=== PATIENT | female | born 1940 | race Caucasian/White ===

== ENCOUNTER → 2018-08-08 09:31 | Outpatient (CLI) | payer MEDICARE, BC, SELFPAY ==
--- NOTE | 2018-08-08 | DI.US.S_ITS ---
ULTRASOUND OF RIGHT BREAST: 08/08/2018 CLINICAL: RIGHT breast mass. No prior exams were available for comparison. Color flow and real-time ultrasound of the right breast were performed on the areas of interest. [place] scale images of the real-time examination were reviewed. There is a 2.6 cm x 0.6 cm x 2.1 cm oval mass with a non-circumscribed margin in the right breast at 12 o'clock middle depth. This oval mass is hyperechoic. This correlates as palpated. Color flow imaging demonstrates that there is no increase in vascularity. IMPRESSION: BENIGN There is no sonographic evidence of malignancy. The 2.6 cm x 0.6 cm x 2.1 cm oval mass in the right breast is consistent with fat necrosis and is benign. A 1 year screening mammogram is recommended. This exam was interpreted at Station ID: [id number]. Electronically Signed By: Mary gregory/:08/08/2018 14:05:14 letter sent: Normal Exam Ultrasound BI-RADS: 2 Benign
--- NOTE | 2018-08-08 | DI.MG.S_ITS ---
BILATERAL DIGITAL DIAGNOSTIC MAMMOGRAM 3D/2D WITH AUGMENTATION: 08/08/2018 CLINICAL: Right breast lump. Comparison is made to exams dated: 06/18/2017 mammogram and 05/22/2016 mammogram - [facility]. The tissue of both breasts is heterogeneously dense. This may lower the sensitivity of mammography. No significant masses, calcifications, or other findings are seen in either breast. IMPRESSION: INCOMPLETE: NEEDS ADDITIONAL IMAGING EVALUATION There is no mammographic abnormality seen in the right breast to correspond with the palpable abnormality, however targeted ultrasound of the right breast is recommended and will be performed immediately following this exam. This exam was interpreted at Station ID: [id number]. NOTE: For mammograms, a report in lay terms will be sent to the patient. Approximately 15% of breast malignancies will not be visualized mammographically. In the management of a palpable breast mass, a negative mammogram must not discourage biopsy of a clinically suspicious lesion. Electronically Signed By: Mary Chacon M.D. lk/:08/08/2018 10:33:01 ACR BI-RADS Category 0: Incomplete [id number]
== END ==
PROVIDERS: PCP Family Medicine; Visit Provider Family Medicine
DX: R92.8 Other abnormal and inconclusive findings on diagnostic imaging of breast (principal); N63.10 Unspecified lump in the right breast, unspecified quadrant
CPT/HCPCS: 76642; 77066; G0279

== ENCOUNTER → 2022-03-02 10:05 | Outpatient (CLI) | payer MEDICARE, BC, SELFPAY ==
--- NOTE | 2022-03-09 07:33 | P.PFT.S_ITS ---
Pulmonary Function Test Referral & Results Date Patient Seen: 03/02/22 Requesting provider: Kristin Hinton Results: The spirometry demonstrates an FVC of 2.07 L which is 72% of predicted. The FEV1 was measured at 1.51 L which is 71% of predicted. The FEV1/FVC ratio was 73 which is 99% of predicted. Following the administration of bronchodilator there was 11% improvement in FEV1 and a 53% improvement in FEF 25-75%. Lung volumes show an SVC of 2.11 L which is 72% of predicted. The diffusing capacity was measured at 20.36 which is 71% of predicted. No hemoglobin value was provided, so no correction for potential anemia could be made, if appropriate. The maximum voluntary ventilation was reduced Interpretation: This study demonstrates probably very mild obstructive lung disease based on r eduction FEV1 although FEV1/FVC ratio is preserved there is evidence of benefit following bronchodilator as above and shape a flow volume loop also probably supports the presence of some degree of obstructive lung disease There is a mild to moderate reduction in lung volumes suggesting the presence of kjwu-xm-zqeybylo restrictive lung disease which may well explain the abnormality in the FEV1 above There is also a bdna-lx-vjoxdafu reduction diffusing capacity suggesting the presence of disease at the capillary alveolar level Clinical correlation suggested
== END ==
PROVIDERS: PCP Family Medicine; Referring Provider Internal Medicine Pulmonary Disease; Visit Provider Internal Medicine Pulmonary Disease
DX: R06.02 Shortness of breath (principal); Z87.891 Personal history of nicotine dependence; J98.8 Other specified respiratory disorders
CPT/HCPCS: 87635; 94060; 94726; 94729; C9803

== ENCOUNTER 2022-12-20 11:39 | Day surgery (SDC) | payer MEDICARE, OTHER, SELFPAY ==
[2022-12-06 09:42] VITALS: BMI 22.7
[2022-12-20] VITALS (12 sets, daily range): BP systolic 120–185; BP diastolic 62–101; PULSE 60–86; RESP 15–20; TEMP 36.1–36.6; O2SAT 95–98; BMI 22.7; BMI 20.2
--- NOTE | 2022-12-20 06:00 | DI.RAD.S_ITS ---
PROCEDURE: XR KNEE LT 1TO2V INDICATIONS: TKA TECHNIQUE: 2 view(s) of the knee acquired. COMPARISON: None. FINDINGS: Bones: Patient is status post knee joint arthroplasty. Hardware components are in expected positions. Visualized bony structures are intact. Soft tissues: Overlying postoperative changes are noted. IMPRESSION: Postoperative changes from left knee arthroplasty. Dictated by: Kirby Jones M.D. on 12/20/2022 at 18:08 Approved by: Kirby Jones M.D. on 12/20/2022 at 18:09
[2022-12-20] MEDS: ACETAMINOPHEN 325 MG TABLET 975 MG PO (12:13)
[2022-12-20] MEDS: LACTATED RINGERS 1,000 ML 42 ML IV (12:14)
[2022-12-20] MEDS: CELECOXIB 200 MG CAPSULE PO (12:14)
[2022-12-20] MEDS: VANCOMYCIN 1,000 MG/200 ML PIGGYBACK 200 MG IV (14:01)
--- NOTE | 2022-12-20 15:03 | PM.PREOP ---
Pre-operative Note Interval Note History & Physical reviewed/Exam performed by Physician: Yes Changes to H&P: No
--- NOTE | 2022-12-20 15:04 | PM.OP.1 ---
Operative Date/Time/Diagnoses Date of procedure: 12/20/22 Time of procedure: 15:04 Pre-op diagnosis: left knee OA Post-op diagnosis: same Procedure & Clinicians Procedure: Left total knee arthroplasty Same procedure as scheduled: Yes Indications: The patient has had progressively worsening left knee pain with radiographic changes consistent with arthritis. Non-operative management has failed and the patient has requested total knee replacement. The risks, benefits and alternatives to surgery were discussed with the patient prior to proceeding. Risks discussed included, but were not limited to, failure to relieve pain, stiffness, infection, nerve damage, deep venous thrombosis, pulmonary embolism, stroke, coma, heart attack, permanent paralysis and , as well as the potential need for eventual revision of the prosthetic. Surgeon: Blaire Beard Gas Compressor Turbine Operator: Lionel Orantes Anesthesia Type: Spinal Operative Notes Findings: Severe left knee arthritis, good stability Closure Type: primary Specimen(s): none sent Prosthetic devices, grafts, tissues, transplants, or devices: [employer] BCS 2 size 5 femur, size 4 tibia, +10 poly, 35 x 7-1/2 mm patella Estimated Blood Loss (mL): 250 Blood products transfused: none Tourniquet time (min): 64 Procedure in detail: The patient was seen in the pre-operative area, where the patient identified the left knee as the operative site and this was marked with my initials. The patient received pre-operative antibiotics, and was taken to the operating room and placed on the operative table in the supine position. After satisfactory anesthesia, a multimedia manager out was performed. The left leg was encircled with a tourniquet about the proximal thigh, and the leg was prepared from the toes to the tourniquet with ChloroPrep in the usual fashion and draped through sterile drapes. The leg was elevated and exsanguinated with Eschmark bandage and the tourniquet inflated to [250] mmHg pressure. PA was used during the procedure and was essential for adequate retraction and safe implantation of the components. The knee was approached through an approximately 18 cm incision centered over the patella and carried into the knee through a medial parapatellar arthrotomy. A portion of the medial and lateral meniscus was resected. Soft tissue was carefully mobilized around the patella the patella was measured with a caliper. Bone was resected from the patella and the patellar height was reconstituted with up an appropriate sized patellar component. A cover was then placed on the patella. A small amount of additional medial and lateral meniscus was resected. The distal femur was cut at 5?. A [+2] cut was used. It looked like an appropriate distal femoral cut and the cut was made without difficulty. An extramedullary guide was used for the tibial cut. 10 mm was resected off the least affected side.The tibia was prepared. The rotation was assessed. The patient was placed in extension residual medial and lateral meniscus as well as any residual bone was carefully resected. [No] additional tibia was resected. Hemostasis was achieved especially posteriorly. Additional local was injected into the posterior capsule. The extension gap was assessed and additional releases for gap balancing were performed as necessary. It was checked with the gap inspector and mender. The femoral component was trial was placed and the notch was finished. The rotation was assessed and the appropriate size femoral guide was placed on the distal femur and finishing cuts were made. There was no evidence of notching. The anterior, posterior and chamfer cuts were then made. The posterior osteophytes and soft tissues were then removed. The posterior capsule was injected with part of a mixture of 60 ml 0.25% Marcaine mixed with 20 ml Exparel for post operative pain control. The remainder of this mixture was injected into the capsule and subcutaneous tissues during cement curing. The tibial and femoral components were then placed and the knee placed through a range of motion. Range of motion was [0-130], with good stability throughout the range. The trials were then removed, and the tibia was finished. The bone was prepared with pulsatile lavage, and dried with a sponge. Cement was applied and the final prosthetics placed. Excess cement was removed during and after cement curing. A brief Betadine soak was performed. After confirming there was no extruded cement posteriorly, the final tibial insert was placed. The knee was copiously irrigated and the tourniquet deflated. Hemostasis was obtained with the Bovie cautery. A drain was placed and brought out superolaterally. The capsule was closed with interrupted nonabsorbable suture. The subcutaneous layer was closed with barbed sutures, and the skin with a running 3-0 V-Lock suture and Surgical glue. An Aquacel Ag dressing was applied and the patient was taken to recovery having tolerated the procedure well. Complications: none Post-operative Condition: stable Disposition: Acute Care Plan for aftercare: The patient will be maintained on a standard total knee replacement protocol with weight bearing as tolerated. The patient will receive aspirin and sequential compression devices for DVT prophylaxis. The patient will be discharged home when safe for the home environment.
[2022-12-20] MEDS: CEFAZOLIN 2 GM/100 ML PREMIX 100 ML IV ×2 (15:45→23:46)
[2022-12-20] MEDS: TRANEXAMIC ACID 1,000 MG VIAL 2000 MG INJ (16:00)
[2022-12-20] MEDS: BUPIVACAINE LIPOSOME 266 MG/20 ML VIAL INJ (16:28)
[2022-12-20] MEDS: BUPIVACAINE 0.25% (PF) 60 ML, EPINEPHrine 0.3 MG INJ (16:29)
[2022-12-20] MEDS: ONDANSETRON 4 MG/2 ML INJ IV (18:01)
[2022-12-20] MEDS: fentaNYL 100 MCG/2 ML INJ IV (18:02)
[2022-12-20] MEDS: OXYCODONE IR 5 MG TABLET PO (18:11)
[2022-12-20] MEDS: LACTATED RINGERS 1,000 ML 100 ML IV (18:46)
[2022-12-20] MEDS: AMLODIPINE 5 MG TABLET PO (18:46)
[2022-12-20] MEDS: OXYCODONE IR 10 MG TABLET PO (18:46)
[2022-12-20] MEDS: ACETAMINOPHEN 325 MG TABLET 650 MG PO ×2 (18:47→23:46)
[2022-12-20] MEDS: DOCUSATE 100 MG CAPSULE PO (20:38)
[2022-12-20] MEDS: carvediloL 3.125 MG TABLET 6.25 MG PO (20:38)
[2022-12-21] VITALS: BP 127/76; PULSE 66; RESP 16; TEMP 36.1; O2SAT 98
[2022-12-21 04:00] VITALS: BP 141/78; PULSE 87; RESP 18; TEMP 36.1; O2SAT 97
[2022-12-21 05:25] LABS: Hematocrit 35.3 % (36-46); Hemoglobin 11.9 g/dL (12.0-16.0)
[2022-12-21] MEDS: ACETAMINOPHEN 325 MG TABLET 650 MG PO ×2 (06:01→11:49)
[2022-12-21 08:08] VITALS: BP 175/94; PULSE 83
[2022-12-21] MEDS: lisinopriL 10 MG TABLET 30 MG PO (08:08)
[2022-12-21] MEDS: FUROSEMIDE 20 MG TABLET PO (08:08)
[2022-12-21] MEDS: DOCUSATE 100 MG CAPSULE PO (08:08)
[2022-12-21] MEDS: AMLODIPINE 5 MG TABLET PO (08:09)
[2022-12-21] MEDS: OXYCODONE IR 10 MG TABLET PO ×2 (08:09→12:37)
[2022-12-21 08:10] VITALS: BP 175/94; PULSE 83
[2022-12-21] MEDS: carvediloL 3.125 MG TABLET 6.25 MG PO (08:10)
[2022-12-21] MEDS: polyethylene glycoL 3350 17 GM POWD.PACK PO (08:11)
[2022-12-21] MEDS: CEFAZOLIN 2 GM/100 ML PREMIX 100 ML IV (08:11)
[2022-12-21 08:18] VITALS: BP 175/94; PULSE 83; RESP 17; TEMP 36.3; O2SAT 98
--- NOTE | 2022-12-21 09:04 | P.DS_ITS ---
History of Present Illness History of Present Illness Date Patient Seen: 12/21/22 Time Patient Seen: 08:00 Chief complaint: Left TKA Narrative: Patient is resting comfortably in bed this morning, daughter at bedside. She complains of knee pain, marginal control with medication. She also complains of intermittent pains into the left lower extremity that she believes is nerve pain. She is adamant that she is going home today and requests priority ferry pass for the 2pm ferry. Denies fever, chills, nausea, vomiting, shortness of breath. Discharge Providers Provider Discharge Date: 12/21/22 Primary care physician: Harpal London Consults: 12/12/22 12:46 Consult to Anesthesiology Routine Comment: Consulting Provider: Anesthesiologist Reason for consultation: Surgeon requested re: Cardiac history 12/20/22 06:00 Consult to Anesthesiology Routine Comment: Consulting Provider: Anesthesiologist Reason for consultation: Regional block for post operative pain control 12/20/22 18:29 Consult to Discharge Planning Routine Comment: Consult to Occupational Therapy Evaluate & Treat Comment: Physician Instructions: Evaluate and treat Consult to Physical Therapy Evaluate & Treat Comment: Physician Instructions: postop TKA protocol Discharge provider: Nataliia Gonsalez PA-C Summary Hospital Course Discharge Diagnosis: S/p L TKA Hospital Course: Operative Date/Time/Diagnoses Date of procedure: 12/20/22 Time of procedure: 15:04 Pre-op diagnosis: left knee OA Post-op diagnosis: same Procedure & Clinicians Procedure: Left total knee arthroplasty Same procedure as scheduled: Yes Indications: The patient has had progressively worsening left knee pain with radiographic changes consistent with arthritis. Non-operative management has failed and the patient has requested total knee replacement. The risks, benefits and alternatives to surgery were discussed with the patient prior to proceeding. Risks discussed included, but were not limited to, failure to relieve pain, stiffness, infection, nerve damage, deep venous thrombosis, pulmonary embolism, stroke, coma, heart attack, permanent paralysis and , as well as the potential need for eventual revision of the prosthetic. Surgeon: Blaire Beard Gastroenterology Technician: Lionel Orantes Anesthesia Type: Spinal Operative Notes Findings: Severe left knee arthritis, good stability Closure Type: primary Specimen(s): none sent Prosthetic devices, grafts, tissues, transplants, or devices: [employer] BCS 2 size 5 femur, size 4 tibia, +10 poly, 35 x 7-1/2 mm patella Estimated Blood Loss (mL): 250 Blood products transfused: none Status at Discharge Cognitive/behavioral status at discharge: oriented Functional status at discharge: uses cane/walker Overall status at discharge: patient is progressing back to baseline Exam Vital Signs (past 8 hours): - 12/21/22 04:00 12/21/22 08:08 12/21/22 08:10 Temperature 97.0 F L Pulse Rate 87 83 83 Respiratory Rate 18 Blood Pressure 141/78 H 175/94 H 175/94 H Pulse Oximetry 97 Oxygen Flow Rate 2 12/21/22 08:18 Temperature 97.3 F L Pulse Rate 83 Respiratory Rate 17 Blood Pressure 175/94 H Pulse Oximetry 98 Oxygen Flow Rate 2 Oxygen Delivery Method Nasal Cannula Oxygen Flow Rate 2 Narrative Exam Narrative: 82 y/o female. Awake, alert, oriented. L knee intraoperative bandage clean, dry, intact. Bilateral calves soft, compressible, nontender with no palpable cords or masses. Objective Labs 12/21/22 04:44 Labs: Laboratory Results - last 24 hr 12/21/22 04:44 Hgb 11.9 L Hct 35.3 L PFSH Medical History Afib Anxiety about health Arthritis HTN (hypertension) VAMSHI on CPAP Osteoarthritis Scoliosis Surgical History History of carpal tunnel surgery of right wrist Hx of bilateral cataract extraction Hx of breast augmentation Hx of cosmetic surgery Hx of foot surgery Social History household members: none Smoking Status: Former smoker alcohol intake: current Discharge Assessment & Plan Assessment and Plan Assessment: Progressing as expected. Plan of Treatment: [facility] for PT today. If safe and cleared by PT, she may discharge to home with her daughter. Continue pain regimen as needed. Continue anticoagulation. Discharge Plan Discharge Plan Patient Disposition: Home Discharge orders & Medications Discharge Orders: Discharge (Order); Ordered 12/21/22 Ordered By: Nataliia Gonsalez Prescriptions: New oxycodone 5 mg Tablet 5 mg PO Q4-6H PRN (Reason: Pain, Moderate (4-6)) Qty: 40 0RF Continued amlodipine [Norvasc] 5 MG tablet 5 mg PO QDAY Qty: 0 carvedilol 6.25 mg Tablet 6.25 mg PO BID Rx Instructions: must administer with a meal/food acetaminophen 500 mg Tablet 500 mg PO BID lisinopril 30 mg Tablet 30 mg PO DAILY furosemide 20 mg Tablet 20 mg PO QAM Eliquis 5 mg Tablet 5 mg PO BID Follow up/Referrals: Harpal London [Primary Care Provider] - Blaire Beard MD [Physician] - As previously scheduled Diet/Activity/Treatments Diet: Diet as Tolerated Activity: Up and walking as tolerated Cold/Heat Therapy: Ice to knee as needed Skin/Wound/Dressing Care Report to your healthcare provider any signs of infection, such as:: chills, fever, night sweats, unusual drainage and unusual redness Dressing: Keep dressing clean, dry, and intact until 2 week follow up with orthopedics. May remove/replace ZION bandage as needed. Visit Report/Discharge Packet Instructions: DI for Knee Replacement Stand Alone Forms: Patient Portal/API Discharge Data Primary Care Provider: Harpal London Attending Provider: Blaire Beard Quality VTE Deep Vein Thrombosis/Pulmonary Embolism Present on Admission: No
--- NOTE | 2022-12-21 10:21 | CM.DANOTE ---
Initial DCP Assessment Note Pt is an 82 yo female, resident of [facility], now POD#1 from left knee surgery by Dr Beard PCP: Harpal London Payer: [employer] Reviewed chart, pt discussed in multidisciplinary rounds this morning. Therapy has cleared pt for return home w/family to assist and pt has planned for home, DC order from Ortho has already been initiated this morning. RADHA Sellers working on priority boarding pass for patient's request ferry: [id number] to [facility] No barriers identified at this time to patient's safe discharge home w/family to assist; close outpatient f/u recommended. LATRELL Banks Discharge Planning/Care Management CM Discharge Assessment Start: 12/21/22 10:19 Freq: Status: Active Protocol: Document 12/21/22 10:20 [email or web address] (Rec: 12/21/22 10:21 [email or web address] [id number]) Discharge Planning Assessment Assigned Search Engine Marketing Manager LATRELL Moore DPOA/Assigned Designee Name Janie Mason (good friend) Contact Information [phone] Advance Directives? Yes Advance Directives on File No History Provided By Patient,Medical Record Prior Living Arrangements House Household Members none Type of transporation used prior to Drives own vehicle admit Independent with ADL's Yes Is patient alert and oriented? Yes Patient/Family Preference OP PT Therapy Barriers to Discharge No Discharge Plan Home Transportation Arrangement Daughter Referrals Initiated None needed
--- NOTE | 2022-12-21 10:57 | OT.IP.EVAL ---
Addendum entered and electronically signed by Beena Temple OT 12/21/22 13:15: edit Original Note: Current Diagnoses Unilateral primary osteoarthritis, left knee (12/20/22) Surgery Performed Operation Date: 12/20/22 13:45 Actual Procedures p Total Knee Arthroplasty(Left) - Blaire Beard MD Past Medical History (Last Reviewed 12/21/22 @ 09:11 by Nataliia Gonsalez PA-C) Afib Anxiety about health Arthritis HTN (hypertension) VAMSHI on CPAP Osteoarthritis Scoliosis Surgical History (Last Reviewed 12/21/22 @ 09:11 by Nataliia Gonsalez PA-C) History of carpal tunnel surgery of right wrist Hx of bilateral cataract extraction Hx of breast augmentation Hx of cosmetic surgery Hx of foot surgery Occupational Therapy Inpatient Evaluation/Re-Eval M1 PT/OT-IP Prior Functional Status Start: 12/21/22 12:35 Freq: NEEDED Status: Active Protocol: Document 12/21/22 12:35 ES (Rec: 12/21/22 13:00 ES [id number]) Medical Review Prior Functional Status Medical History Reviewed Yes Communication Indep Mobility and Gait Indep with cane or walking stick. Was using FWW in the mornings. Social History Household Members none Living Arrangements House Number of Floors (Floors) One Floor Number of Stairs To Enter/Railing? No stairs Home Equipment Front Wheel Walker,Straight Cane,Lift Recliner,Grab Bars Near Toilet,Grab Bars In Shower Additional Social History Comment Niece will be staying with Leila for at least one week to help out. Patient sleeps in an adjustable bed. M1 PT/OT-IP Prior Functional Status Start: 12/21/22 12:49 Freq: NEEDED Status: Active Protocol: Document 12/21/22 10:21 [facility] (Rec: 12/21/22 13:14 [facility] [id number]) Medical Review Prior Functional Status Medical History Reviewed Yes Communication Independent Activities of Daily Living and IADL's Pt having increased pain durign ADL and IADl needs. Social History Household Members none Living Arrangements House Number of Stairs To Enter/Railing? No steps for the house. Home Environment High Toilet,Walk in Shower Home Equipment Front Wheel Walker,Shower Seat with Backrest,Hand Held Shower,Lift Recliner,Grab Bars Near Toilet M2 OT-IP Current Condition Start: 12/21/22 12:49 Freq: Status: Active Protocol: Document 12/21/22 10:21 [facility] (Rec: 12/21/22 13:14 [facility] [id number]) Occupational Therapy Current Condition Current Condition Evaluation Date 12/21/22 Treatment Diagnosis S/p L TKA Diagnosis Onset Date 12/20/22 M3 OT- IP Subjective and Pain Start: 12/21/22 12:49 Freq: Status: Active Protocol: Document 12/21/22 10:21 [facility] (Rec: 12/21/22 13:14 [facility] [id number]) OT- Subjective Occupational Therapy Visit Type Type Initial Evaluation Visit Start Time 10:21 Visit Stop Time 10:57 Total Visit Minutes 36 Occupational Therapy Visit Comments Patient Comments Pt wanting to use the bathroom . Pt's caregivers in the room. Patient/Caregiver Goals TO go home. OT Pain Assessment Pain When Pain Assessed At Rest Pain Present Pain Present Pain Reported Location Left Knee Intensity 4 Scale Used Numeric (0 - 10) M4 OT- IP ADL's Start: 12/21/22 12:49 Freq: Status: Active Protocol: Document 12/21/22 10:21 [facility] (Rec: 12/21/22 13:14 [facility] [id number]) OT [id number] General Evaluation Self-Feeding Ability Independent OT ADL-Grooming General Evaluation Grooming Ability Independent Areas Needing Assistance Retrieving/Set-up of Grooming Items Comments OT Grooming Comments Able to do while standing at this sink with FWW. OT ADL-Oral Care General Eval Oral Care Ability Independent OT ADL-Dressing General Eval Lower Body Dressing Ability Maximum Assistance Comments OT Dressing Comments Able to show pt LB dressing equipment to help with her independence with dressing needs. Pt states her caregivers will be assisting her. OT ADL-Toileting General Evaluation Toileting Ability Standby Assistance Comments OT Toileting Comments SBA with FWW. Suggested use of wet wipes and pads/brief to prevent rushing to the bathroom. OT ADL-Bathing Comments OT Bathing Comments Pt will have assist for showering needs. M5 OT- IP IADL's Start: 12/21/22 12:49 Freq: Status: Active Protocol: Document 12/21/22 10:21 [facility] (Rec: 12/21/22 13:14 [facility] [id number]) OT-Instrumental Activities of Daily Living Deficits IADL Deficits Identified Deficits Home Safety Awareness Awareness of Need for Assistance at Home Good Awareness Ability to Problem Solve Emergency Able to Problem Solve Situations Home Safety Comments Pt will have assist at home to assist for all her needs. M6 OT- IP Functional Cognition Start: 12/21/22 12:49 Freq: Status: Active Protocol: Document 12/21/22 10:21 [facility] (Rec: 12/21/22 13:14 [facility] [id number]) Cognitive Factors Limiting Selfcare Function Cognitive Ability Level of Alertness Alert Patient Orientation Name,Age,Birthday,Month,Date, Year,Day of Week,Place, Situation Attention Span Ability Capable of Focused Attention, Capable of Sustained Attention Ability to Follow Commands Able to Follow Multi-Step Commands Cognitive Comments Cognitive Assessment Comments Intact. OT- Vision and Hearing OT- Hearing Assessment OT- Hearing Assessment WFL M7 OT- IP Mobility and Balance Start: 12/21/22 12:49 Freq: Status: Active Protocol: Document 12/21/22 10:21 [facility] (Rec: 12/21/22 13:14 [facility] [id number]) OT-Transfer Assessment Sit to and From Stand Sit to and from Stand Contact Guard Assistance, Minimal Assistance Transfers Transfer Ability Standby Assistance,Contact Guard Assistance Technique Transfer Destination Bed,Chair,Toilet Transfer Technique Stand Step Pivot Devices Transfer Assistive Devices Gait Belt,Front Wheeled Walker Comments Mobility Comments Pt's caregiver able to assist pt safely for gait belt management, transfer and bed mobility needs. OT- Balance Assessment Sitting Balance and Reactions Static Sitting Balance Ability Good Dynamic Sitting Balance Ability Good Standing Balance and Reactions Static Standing Balance Ability Good Dynamic Standing Balance Ability Fair M9 OT- IP Assessment and Plan Start: 12/21/22 12:49 Freq: Status: Active Protocol: Document 12/21/22 10:21 [facility] (Rec: 12/21/22 13:14 [facility] [id number]) OT Summary Assessment and Plan Potential Rehabilitation Potential Good Analytic Complexity at Evaluation Low Summary OT Impairments Pain,Functional Mobility, Dressing,Toileting,Bathing, Toilet Transfers,Shower Transfers,Activity Tolerance Progress Towards Goals Progressing Toward Goals Assessment Summary Pt low complexity and main barrier is pain and has supportive caregiver that have completed caregiver training to be able to assist her with all ADl and mobility needs with good safety and understanding. Goals Dressing Goal Independent Toileting Goal Independent Bathing Goal Independent Toilet Transfer Goal Independent Shower Transfer Goal Independent Days to Meet Goals 5 Frequency of Treatment Frequency Of Treatment Once a Day Treatment Plan OT Treatment Plan ADL Training,Functional Mobility,Patient/Family Education,Discharge Planning Discharge Recommendations OT Discharge Recommendations Home with Assistance Transportation Needs at Discharge [facility] Vehicle
[2022-12-21] MEDS: OXYCODONE IR 5 MG TABLET PO (11:49)
[2022-12-21 12:53] VITALS: BP 152/78; PULSE 77; RESP 17; TEMP 36.1; O2SAT 99
--- NOTE | 2022-12-21 13:01 | PT.IIE ---
Current Diagnoses Unilateral primary osteoarthritis, left knee (12/20/22) Surgery Performed Operation Date: 12/20/22 13:45 Actual Procedures p Total Knee Arthroplasty(Left) - Blaire Beard MD Surgical History (Last Reviewed 12/21/22 @ 09:11 by Nataliia Gonsalez PA-C) History of carpal tunnel surgery of right wrist Hx of bilateral cataract extraction Hx of breast augmentation Hx of cosmetic surgery Hx of foot surgery Medical History (Last Reviewed 12/21/22 @ 09:11 by Nataliia Gonsalez PA-C) Afib Anxiety about health Arthritis HTN (hypertension) VAMSHI on CPAP Osteoarthritis Scoliosis Physical Therapy Inpatient Evaluation/Re-Eval M1 PT/OT-IP Prior Functional Status Start: 12/21/22 12:35 Freq: NEEDED Status: Active Protocol: Document 12/21/22 12:35 ES (Rec: 12/21/22 13:00 ES [id number]) Medical Review Prior Functional Status Medical History Reviewed Yes Communication Indep Mobility and Gait Indep with cane or walking stick. Was using FWW in the mornings. Social History Household Members none Living Arrangements House Number of Floors (Floors) One Floor Number of Stairs To Enter/Railing? No stairs Home Equipment Front Wheel Walker,Straight Cane,Lift Recliner,Grab Bars Near Toilet,Grab Bars In Shower Additional Social History Comment Niece will be staying with Leila for at least one week to help out. Patient sleeps in an adjustable bed. M2 PT-IP Current Condition Start: 12/21/22 12:35 Freq: NEEDED Status: Active Protocol: Document 12/21/22 12:35 ES (Rec: 12/21/22 13:00 ES [id number]) Physical Therapy Current Condition Current Condition Evaluation Date 12/21/22 Treatment Diagnosis S/p L TKA; difficulty walking Onset Date 12/20/22 M3 PT-IP Subjective Start: 12/21/22 12:35 Freq: NEEDED Status: Active Protocol: Document 12/21/22 12:35 ES (Rec: 12/21/22 13:00 ES [id number]) Subjective Physical Therapy Visit Type Type Initial Evaluation Visit Start Time 09:08 Visit Stop Time 09:46 Total Visit Minutes 38 Physical Therapy Visit Comments Patient Comments Patient alert in bed, stated she didn't like her breakfast. [place]. M4 PT-IP Mobility and Gait Start: 12/21/22 12:35 Freq: NEEDED Status: Active Protocol: Document 12/21/22 12:35 ES (Rec: 12/21/22 13:00 ES [id number]) PT-Bed Mobility Assessment Supine to Sit Supine to Sit Minimal Assistance,Head of Bed Elevated Scooting Scooting to Edge of Bed Standby Assistance PT-Transfer Assessment Sit to and From Stand Sit to and from Stand Minimal Assistance,Use of Upper Extremities Equipment Transfer Assistive Device Gait Belt,Front Wheeled Walker Transfers Transfer Destination Chair,Toilet Transfer Technique Ambulated Transfer Ability Level of Assist Minimal Assistance,Use of Upper Extremities Comments Mobility Comments Required assist to move LE's to EOB. Able to push self to sit. Assist needed to scoot hips to EOB. Initially needed mod A to stand with posterior LOB, progressing to min A to boost to stand with FWW. Cued for hand placement for safety. Performed toilet transfer with BUE's on grab bar. Cued for hand placement on FWW vs grab bar when starting to ambulate. Instructed patient to place LLE forward during STS to reduce pain with fair follow through. Family also educated on all instructions. Gait Assessment Gait Gait Assistance Required: Contact Guard Assist Distance (Feet) 25 Assistive Devices Assistive Device Gait Belt,Front Wheeled Walker Gait Deviations General Gait Pattern Antalgic,Decreased Stride Length,Decreased Feet Clearance,Flexed Trunk Factors Limiting Gait Function Factors Limiting Gait Function Decreased Strength,Limited Range of Motion,Pain,Poor Balance Comments Gait Comments Ambulated with crouched knee gait, cued for increased L knee extension during stance to reduce fall risk. Patient ambulated out of room but became lightheaded and was returned to chair and left with RN to take BP. Stair Climbing Assessment Comments Stair Climbing Comments No stairs at home. PT-Balance Assessment Sitting Balance and Reactions Static Sitting Balance Ability Good Dynamic Sitting Balance Ability Good Standing Balance and Reactions Static Standing Balance Ability Fair Dynamic Standing Balance Ability Fair Device Used FWW M5 PT-IP Objective Assessments Start: 12/21/22 12:35 Freq: NEEDED Status: Active Protocol: Document 12/21/22 12:35 ES (Rec: 12/21/22 13:00 ES [id number]) Orientation Orientation/Cognition Level of Alertness Alert Language Function Ability No Deficits Noted Safety Awareness Understands Safety Issues Gross Range of Motion Upper Extremity ROM Assessment Within Functional Limits Lower Extremity ROM Assessment Left Impaired Impairments L knee flexion 5-70 degrees Strength Upper Extremity Strength Assessment Within Functional Limits Lower Extremity Strength Assessment Left Impaired Knee 3+/5 M6 PT-IP Treatment Start: 12/21/22 12:35 Freq: NEEDED Status: Active Protocol: Document 12/21/22 12:35 ES (Rec: 12/21/22 13:00 ES [id number]) Physical Therapy Treatment Exercises Exercises Ankle Pumps,Quad Sets,Heel Slides Education Education Provided Precautions,Weight Bearing Status,Post-Op Packet,Safety Other Treatments Other Treatment Performed Educated family on use of gait belt at home for safety. M7 PT-IP Assessment and Plan Start: 12/21/22 12:35 Freq: NEEDED Status: Active Protocol: Document 12/21/22 12:35 ES (Rec: 12/21/22 13:00 ES [id number]) PT Summary Assessment and Plan Potential Rehabilitation Potential Good Status of Condition at Evaluation Evolving Summary Impairments Pain,ROM,Strength,Balance,Bed Mobility,Transfers,Gait, Activity Tolerance Assessment Summary Patient is a 82 year old female POD 1 s/p L TKA. She required assistance with all mobility tasks using FWW. She initially had poor standing balance, improved with practice. She became lightheaded with ambulation so was not able to tolerate household distances this visit . She had increased pain and required min A to complete partial HEP. She will benefit from further skilled PT to increase independence and safety with mobility and TKE exercises prior to d/c home. Anticipate she will be able to d/c today with 24/7 assistance if she is able to better tolerate ambulation. Goals Bed Mobility Goal Minimal Assistance Transfer Goal Minimal Assistance,Front Wheeled Walker Gait Goal Contact Guard Assistance,Front Wheel Walker Gait Distance 50 ft Other Goals Patient will be able to perform TKE HEP with SBA. Days to Meet Goals 2 Frequency of Treatment Frequency Of Treatment Twice a Day Treatment Plan Physical Therapy Treatment Plan Bed Mobility Training,Transfer Training,Gait Training, Therapeutic Exercise,Post Op Education,Discharge Planning Precautions Other Precautions Fall risk Weight Bearing Status Weight Bearing Status Weight Bear as Tolerated Recommendations To Nursing Amount of Assist Needed 1 Person Assist Discharge Recommendations PT Discharge Recommendations Home with 24/7 Assist Available,Outpatient PT Transportation Needs at Discharge Private Vehicle
--- NOTE | 2022-12-21 13:25 | PT.IPTN ---
Current Diagnoses Unilateral primary osteoarthritis, left knee (12/20/22) Surgery Performed Operation Date: 12/20/22 13:45 Actual Procedures p Total Knee Arthroplasty(Left) - Blaire Beard MD Physical Therapy Treatment Note M2 PT-IP Current Condition Start: 12/21/22 12:35 Freq: NEEDED Status: Discharge Protocol: Document 12/21/22 12:35 ES (Rec: 12/21/22 13:00 ES [id number]) Physical Therapy Current Condition Current Condition Evaluation Date 12/21/22 Treatment Diagnosis S/p L TKA; difficulty walking Onset Date 12/20/22 M3 PT-IP Subjective Start: 12/21/22 12:35 Freq: NEEDED Status: Discharge Protocol: Document 12/21/22 12:40 [place] (Rec: 12/21/22 13:17 KS [id number]) Subjective Physical Therapy Visit Type Type Treatment Note Visit Start Time 12:04 Visit Stop Time 12:27 Total Visit Minutes 23 Number of PAN SHOVER Visits 1 Physical Therapy Visit Comments Patient Comments Pt agreeable to working w/ PT. M4 PT-IP Mobility and Gait Start: 12/21/22 12:35 Freq: NEEDED Status: Discharge Protocol: Document 12/21/22 12:40 [place] (Rec: 12/21/22 13:17 [place] [id number]) PT-Bed Mobility Assessment Supine to Sit Supine to Sit Standby Assistance PT-Transfer Assessment Sit to and From Stand Sit to and from Stand Minimal Assistance,Use of Upper Extremities Equipment Transfer Assistive Device Gait Belt,Front Wheeled Walker Transfers Transfer Destination Chair,Toilet Transfer Technique Ambulated Transfer Ability Level of Assist Minimal Assistance,Use of Upper Extremities Comments Mobility Comments Pt in bed upon arrival, needs to use bathroom. Has been complting exercises and has good understanding. SBA for sup<>sit, scooting EOB. Min A for sit<>stand. Pt ambulated ~ 15 ft to toilet, needs min A for slow descent and Min A for sit<>Stand. pt then amulated 10 ft to chair CGA. She c/o increased pain at this time but feels eager to return home . Gait Assessment Gait Gait Assistance Required: Contact Guard Assist Distance (Feet) 25 Assistive Devices Assistive Device Gait Belt,Front Wheeled Walker Gait Deviations General Gait Pattern Antalgic,Decreased Stride Length,Decreased Feet Clearance,Flexed Trunk Factors Limiting Gait Function Factors Limiting Gait Function Decreased Strength,Limited Range of Motion,Pain,Poor Balance Comments Gait Comments Cont to require cues for quad facilitation/knee straightening. no lightheadedness. Stair Climbing Assessment Comments Stair Climbing Comments No stairs at home. PT-Balance Assessment Sitting Balance and Reactions Static Sitting Balance Ability Good Dynamic Sitting Balance Ability Good Standing Balance and Reactions Static Standing Balance Ability Fair Dynamic Standing Balance Ability Fair Device Used FWW M5 PT-IP Objective Assessments Start: 12/21/22 12:35 Freq: NEEDED Status: Discharge Protocol: Document 12/21/22 12:35 ES (Rec: 12/21/22 13:00 ES [id number]) Orientation Orientation/Cognition Level of Alertness Alert Language Function Ability No Deficits Noted Safety Awareness Understands Safety Issues Gross Range of Motion Upper Extremity ROM Assessment Within Functional Limits Lower Extremity ROM Assessment Left Impaired Impairments L knee flexion 5-70 degrees Strength Upper Extremity Strength Assessment Within Functional Limits Lower Extremity Strength Assessment Left Impaired Knee 3+/5 M6 PT-IP Treatment Start: 12/21/22 12:35 Freq: NEEDED Status: Discharge Protocol: Document 12/21/22 12:40 [place] (Rec: 12/21/22 13:17 [place] [id number]) Physical Therapy Treatment Exercises Exercises Ankle Pumps,Gluteal Sets,Quad Sets,Heel Slides Education Education Provided Precautions,Weight Bearing Status,Post-Op Packet,Safety Other Treatments Other Treatment Performed Cont famyl education, discussed at home safety. M7 PT-IP Assessment and Plan Start: 12/21/22 12:35 Freq: NEEDED Status: Discharge Protocol: Document 12/21/22 12:40 [place] (Rec: 12/21/22 13:17 KS [id number]) PT Summary Assessment and Plan Potential Rehabilitation Potential Good Summary Impairments Pain,ROM,Strength,Balance,Bed Mobility,Transfers,Gait, Activity Tolerance Progress Towards Goals Progressing Toward Goals Assessment Summary Pt c/o high pain, but only required SBA for bed mobility and CGA for ambulation. Does still require Jorden for standing from lower surfaces however has good family support. Encouraged TKE exercises. Pt eager to return home w/ daughters assisting. BP was stable. She will benefit from OPPT to improve strength and stability. Goals Bed Mobility Goal Minimal Assistance Transfer Goal Minimal Assistance,Front Wheeled Walker Gait Goal Contact Guard Assistance,Front Wheel Walker Gait Distance 50 ft Other Goals Patient will be able to perform TKE HEP with SBA. Days to Meet Goals 2 Frequency of Treatment Frequency Of Treatment Twice a Day Treatment Plan Physical Therapy Treatment Plan Bed Mobility Training,Transfer Training,Gait Training, Therapeutic Exercise,Post Op Education,Discharge Planning Precautions Other Precautions Fall risk Weight Bearing Status Weight Bearing Status Weight Bear as Tolerated Recommendations To Nursing Amount of Assist Needed 1 Person Assist Discharge Recommendations PT Discharge Recommendations Home with 24/7 Assist Available,Outpatient PT Transportation Needs at Discharge Private Vehicle
== END 2022-12-21 13:05 | disposition home or self-care (01) ==
LOC: OR 11:42 → AC 14:35
PROVIDERS: PCP Student in an Organized Health Care Education/Training Program; Referring Provider Orthopaedic Surgery; Visit Provider Orthopaedic Surgery
PROC: 0SRD0JZ Replacement of Left Knee Joint with Synthetic Substitute, Open Approach (ICD-10-PCS; CPT 27447; principal; 2022-12-20 13:45)
DX: M17.12 Unilateral primary osteoarthritis, left knee (principal); I10 Essential (primary) hypertension; Z87.891 Personal history of nicotine dependence
CPT/HCPCS: 27447; 36415; 73560; 82962; 85014; 85018; 97110; 97161; 97165; 97530; C1776; C9290; J0171; J0690; J2405; J2704; J3010

== ENCOUNTER → 2023-02-19 10:37 | Outpatient (CLI) | payer MEDICARE, OTHER, SELFPAY ==
[2022-12-20 18:31] VITALS: BMI 20.2
--- NOTE | 2023-02-19 | DI.MRI.S_ITS ---
PROCEDURE: MR LUMBAR SPINE WO CON INDICATIONS: Spondylosis without myelopathy or radiculopathy, lumbar salome TECHNIQUE: Noncontrast sagittal T1 spin echo and T2 fast echo, sagittal STIR, and T2 fast spin echo through the lumbar spine. In cases with scoliosis, additional coronal T2 fast spin echo may be performed. COMPARISON: [facility], RG, SPINE LUMB MIN 4VW, 02/26/2022, 10:36. FINDINGS: Image quality: Excellent. Alignment and Curvature: Straightening of normal lumbar lordosis. Grade 1 anterolisthesis of L4 on L5. S shaped curvature of the lumbar spine. Bone Marrow: Multilevel degenerative endplate changes, most pronounced at L3-L4. Marrow is of normal overall signal. No acute vertebral body compression fractures. Spinal Cord: Conus medullaris terminates at the L1 level. Visualized cord demonstrates normal signal and size. Paraspinous Soft Tissues: No paravertebral masses. T12-L1: Severe disc desiccation height loss with a small posterior disc bulge. Facet arthropathy and thickening of the ligamentum flavum. No central canal or neural foraminal stenosis. L1-L2: Disc desiccation height loss with a small posterior disc bulge. Facet arthropathy and thickening of the ligamentum flavum. No central canal or neural foraminal stenosis. L2-L3: Severe disc desiccation height loss with a small posterior disc bulge. Facet arthropathy. No central canal stenosis. Mild bilateral neural foraminal stenosis. L3-L4: Severe disc desiccation height loss with a posterior disc bulge. Facet arthropathy and thickening of ligamentum flavum. This results in moderate central canal stenosis. Mild to moderate right and moderate severe left neural foraminal stenosis. L4-L5: Severe disc desiccation height loss. Grade 1 anterolisthesis. Facet arthropathy and thickening of ligamentum flavum. Severe central canal stenosis. Severe right and mild left neural foraminal stenosis. L5-S1: No central canal or neural foraminal stenosis. IMPRESSION: 1. Multilevel degenerative changes of the lumbar spine, most pronounced at L4-L5 with severe central canal stenosis and severe right neural foraminal stenosis. 2. Moderate central canal stenosis at L3-L4 with moderate to severe left neural foraminal stenosis. 3. Additional degenerative findings as described above. Dictated by: Trent Ghosh M.D. on 02/19/2023 at 15:06 Approved by: Trent Ghosh M.D. on 02/19/2023 at 15:15
== END ==
PROVIDERS: PCP Student in an Organized Health Care Education/Training Program; Referring Provider Physical Medicine & Rehabilitation; Visit Provider Physical Medicine & Rehabilitation
DX: M47.816 Spondylosis without myelopathy or radiculopathy, lumbar region (principal); M48.061 Spinal stenosis, lumbar region without neurogenic claudication
CPT/HCPCS: 72148

== ENCOUNTER 2023-12-24 09:00 | Day surgery (SDC) | payer MEDICARE, OTHER, SELFPAY ==
[2022-12-20 18:31] VITALS: BMI 20.2
[2023-12-16 09:46] VITALS: BMI 21.9
[2023-12-24] VITALS (9 sets, daily range): BP systolic 128–146; BP diastolic 60–90; PULSE 68–88; RESP 14–16; TEMP 36.2–36.8; O2SAT 92–98; BMI 21.1
--- NOTE | 2023-12-24 06:00 | DI.RAD.S_ITS ---
PROCEDURE: XR KNEE RT 1TO2V INDICATIONS: TKA TECHNIQUE: 2 view(s) of the knee acquired. COMPARISON: [facility], CR, XR KNEE LT 1TO2V, 12/20/2022, 17:42. FINDINGS: Bones: Patient is status post knee joint arthroplasty. Hardware components are in expected positions. Visualized bony structures are intact. Soft tissues: Expected postoperative soft tissue air and soft tissue swelling. IMPRESSION: Expected post-operative appearance of a knee arthroplasty. Dictated by: Teresa Ornelas M.D. on 12/24/2023 at 16:04 Approved by: Teresa Ornelas M.D. on 12/24/2023 at 16:05
[2023-12-24] MEDS: LACTATED RINGERS 1,000 ML 42 ML IV ×2 (09:39→13:04)
[2023-12-24] MEDS: VANCOMYCIN 1,000 MG/200 ML PIGGYBACK 200 MG IV (09:39)
[2023-12-24] MEDS: ACETAMINOPHEN 325 MG TABLET 975 MG PO (10:06)
--- NOTE | 2023-12-24 10:31 | PM.PREOP ---
Pre-operative Note Interval Note History & Physical reviewed/Exam performed by Physician: Yes Changes to H&P: No
--- NOTE | 2023-12-24 10:32 | PM.PREOP ---
Pre-operative Note Interval Note History & Physical reviewed/Exam performed by Physician: Yes Changes to H&P: No
--- NOTE | 2023-12-24 10:32 | PM.OP.1 ---
Operative Date/Time/Diagnoses Date of procedure: 12/24/23 Time of procedure: 11:30 Pre-op diagnosis: Right knee OA Post-op diagnosis: same Procedure & Clinicians Procedure: Right total knee arthroplasty Same procedure as scheduled: Yes Indications: The patient has had progressively worsening right knee pain with radiographic changes consistent with arthritis. Non-operative management has failed and the patient has requested total knee replacement. The risks, benefits and alternatives to surgery were discussed with the patient prior to proceeding. Risks discussed included, but were not limited to, failure to relieve pain, stiffness, infection, nerve damage, deep venous thrombosis, pulmonary embolism, stroke, coma, heart attack, permanent paralysis and , as well as the potential need for eventual revision of the prosthetic. Surgeon: Blaire Beard Petroleum Geologist: Lionel Orantes Anesthesia Type: General and Peripheral nerve block Operative Notes Findings: Severe right knee OA, soft bone, adequate stability Closure Type: primary Specimen(s): none sent Prosthetic devices, grafts, tissues, transplants, or devices: Beard and [facility] BCS 2 size 6 femur, size 4 tibia, +9 poly, 35 x 7-1/2 mm patella Estimated Blood Loss (mL): 250 Blood products transfused: none Tourniquet time (min): 69 Procedure in detail: The patient was seen in the pre-operative area, where the patient identified the right knee as the operative site and this was marked with my initials. The patient received pre-operative antibiotics, and was taken to the operating room and placed on the operative table in the supine position. After satisfactory anesthesia, a horse race timer out was performed. The right leg was encircled with a tourniquet about the proximal thigh, and the leg was prepared from the toes to the tourniquet with ChloroPrep in the usual fashion and draped through sterile drapes. The leg was elevated and exsanguinated with Eschmark bandage and the tourniquet inflated to [250] mmHg pressure. A PA was used during the procedure and was essential for intraoperative retraction and safe implantation of the components. The knee was approached through an approximately 18 cm incision centered over the patella and carried into the knee through a medial parapatellar arthrotomy. Portion of the medial and lateral meniscus was resected. Soft tissue was carefully mobilized around the patella the patella was measured with a caliper. Bone was resected from the patella and the patellar height was reconstituted with up an appropriate sized patellar component. A cover was then placed on the patella. A small amount of additional medial and lateral meniscus was resected. Pins were placed in the femur for Cori robotic navigation and the tibial guide was pinned to the tibia. A plan was carefully taken and developed to optimize alignment, stability in flexion extension gap. The distal femoral cut was made with the robotic bur. It looked like an appropriate distal femoral cut and the cut was made without difficulty. The rotation was assessed and the appropriate size femoral guide was placed on the distal femur and finishing cuts were made. There was no evidence of notching. The anterior, posterior and chamfer cuts were then made. The posterior osteophytes and soft tissues were then removed. The posterior capsule was injected with part of a mixture of 60 ml 0.25% Marcaine mixed with 20 ml Exparel for post operative pain control. The remainder of this mixture was injected into the capsule and subcutaneous tissues during cement curing. The tibial guide was meticulously adjusted and navigated. It was pinned to the tibia and a tibial cut was made without difficulty. The patient was placed in extension residual medial and lateral meniscus as well as any residual bone was carefully resected. [No] additional tibia was resected. Hemostasis was achieved especially posteriorly. Additional local was injected into the posterior capsule. The femoral component trial was placed and the notch was finished. Trial tibial and femoral components were then placed and the knee placed through a range of motion. Range of motion was [0-130], with good stability throughout the range. The trials were then removed, and the tibia was finished. The bone was prepared with pulsatile lavage, and dried with a sponge. Cement was applied and the final prosthetics placed. Excess cement was removed during and after cement curing. A brief Betadine soak was performed. After confirming there was no extruded cement posteriorly, the final tibial insert was placed. The knee was copiously irrigated and the tourniquet deflated. Hemostasis was obtained with the bovie cautery. The capsule was closed with interrupted Vicryl suture. The subcutaneous layer was closed with barbed sutures, and the skin with a running 3-0 V-Lock suture and Surgical glue. An Aquacel Ag dressing was applied and the patient was taken to recovery having tolerated the procedure well. Complications: none Post-operative Condition: stable Disposition: Acute Care Plan for aftercare: The patient will be maintained on a standard total knee replacement protocol with weight bearing as tolerated. The patient will receive eliquis and sequential compression devices for DVT prophylaxis. The patient will be discharged home when safe for the home environment.
--- NOTE | 2023-12-24 11:09 | SUR.PREOP ---
Block start time [1102] . Time out done at 1058. Monitoring initiated and maintained throughout procedure. Oxygen and medications given per anesthesiologist instructions. Patient remained stable throughout procedure, no adverse reactions noted. Block end time [1106].
[2023-12-24] MEDS: CEFAZOLIN 2 GM/100 ML PREMIX 100 ML IV ×2 (11:30→19:03)
[2023-12-24] MEDS: TRANEXAMIC ACID 1,000 MG VIAL 1000 MG INJ ×2 (11:30→12:53)
[2023-12-24] MEDS: BUPIVACAINE LIPOSOME 266 MG/20 ML VIAL INJ (11:46)
[2023-12-24] MEDS: BUPIVACAINE 0.25% (PF) 60 ML, EPINEPHrine 0.3 MG INJ (11:47)
--- NOTE | 2023-12-24 11:53 | SUR.OPER ---
Supine on padded OR bed. Pillow under head, arms secured on padded armboards <90 degree abduction. Safety belt across torso. Non-operative leg secured with tape over blanket over lower leg. Operative leg secured in Bigg positioner. Foam padded brace at thigh of operative leg.
[2023-12-24] MEDS: LACTATED RINGERS 1,000 ML 100 ML IV (14:14)
--- NOTE | 2023-12-24 15:00 | PC.NURSE ---
Pt to room 214 via bed from PACU. Pt is awake, alert, and oriented x 3. States she is not having any pain, nausea, or shortness of breath. States her right foot and leg are still numb but she is able to slightly move her foot. Pt oriented to room, call light, bed controls, and tv controls. Bed alarm on for safety. Pt agrees to not get up without assistance and to call as needed. SCD's on and running. IVF infusing as ordered.
--- NOTE | 2023-12-24 15:55 | PT.IIE ---
Current Diagnoses Unilateral primary osteoarthritis, right knee (12/24/23) Surgery Performed Operation Date: 12/24/23 10:45 Actual Procedures p Total Knee Arthroplasty - Robot(Right) - Blaire Beard MD Surgical History (Last Updated 12/16/23 @ 10:16 by Quita Hillman, RN) History of carpal tunnel surgery of right wrist History of surgery History of total left knee replacement (12/20/22) Hx of bilateral cataract extraction Hx of breast augmentation Hx of cosmetic surgery Hx of foot surgery Medical History (Last Updated 12/16/23 @ 12:07 by Quita Hillman, RN) Afib Anxiety about health Arthritis Chronic dyspnea History of cardioversion HTN (hypertension) VAMSHI on CPAP Osteoarthritis Pulmonary HTN Scoliosis Tricuspid regurgitation Physical Therapy Inpatient Evaluation/Re-Eval M1 PT/OT-IP Prior Functional Status Start: 12/24/23 17:25 Freq: NEEDED Status: Active Protocol: Document 12/24/23 15:55 AB (Rec: 12/24/23 17:39 AB [id number]) Medical Review Prior Functional Status Medical History Reviewed Yes Communication able to make needs known Mobility and Gait pt stated that she was independent with all mobilities and ambulation without AD indoors and uses a walking stick for outdoor mobility; still able to drive prior to sx Social History Household Members none Living Arrangements House Number of Floors (Floors) One Floor Number of Stairs To Enter/Railing? no steps to enter the house Home Environment High Toilet,Walk in Shower Home Equipment Front Wheel Walker,Shower Seat with Backrest,Hand Held Shower,Lift Recliner,Grab Bars Near Toilet,Grab Bars In Shower Additional Social History Comment pt plans to have her niece assist her at home. niece stated that she will be staying with pt for ~ 2 weeks pt has an adjustable bed M2 PT-IP Current Condition Start: 12/24/23 17:25 Freq: NEEDED Status: Active Protocol: Document 12/24/23 15:55 AB (Rec: 12/24/23 17:39 AB [id number]) Physical Therapy Current Condition Current Condition Evaluation Date 12/24/23 Treatment Diagnosis s/p R TKA; difficulty in walking Onset Date 12/24/23 M3 PT-IP Subjective Start: 12/24/23 17:25 Freq: NEEDED Status: Active Protocol: Document 12/24/23 15:55 AB (Rec: 12/24/23 17:39 AB [id number]) Subjective Physical Therapy Visit Type Type Initial Evaluation Visit Start Time 15:55 Visit Stop Time 17:00 Number of GRADES 6 THROUGH 8 TEACHER Visits 0 Physical Therapy Visit Comments Patient Comments agreeable to do PT Therapy Pain Assessment Pain When Pain Assessed At Rest Pain Present Pain Present Denied Pain M4 PT-IP Mobility and Gait Start: 12/24/23 17:25 Freq: NEEDED Status: Active Protocol: Document 12/24/23 15:55 AB (Rec: 12/24/23 17:39 AB [id number]) PT-Bed Mobility Assessment Supine to Sit Supine to Sit Standby Assistance Sit to Supine Sit to Supine Standby Assistance PT-Transfer Assessment Sit to and From Stand Sit to and from Stand Contact Guard Assistance, Minimal Assistance Equipment Transfer Assistive Device Gait Belt,Front Wheeled Walker Orthotic/Prosthetic Devices or Brace: No Transfers Transfer Destination Chair,Bedside Commode Transfer Technique Stand Step Pivot Transfer Ability Level of Assist Contact Guard Assistance, Minimal Assistance Comments Mobility Comments pt sitting on EOB with nurse and NAC. pt was able to use the bedside commode. PT assited. pt completed sit to stand min A and cues and step transfer to bedside commode using FWW min A and cues for RLE steadiness. pt completed sit to stand from the commode CGA to min A and step transfer to EOB using FWW CGA to min A . pt agreed to ambulate. sit to stand from EOB CGA to min A and ambulated to the chair using fWW ~ 20 ft. niece in room and asking about going home. informed pt and niece that it depends on what they want. but for PT, caregiver training needs to be completed to make sure that caregiver will be able to assist pt. niece agreed. caregiver training conducted. educated niece on how to use safety belt and how to assist pt. niece was able to assist pt with sit to stand and ambulation in room using FWW CGA to min A ~ 30 ft. (+) LOB but niece was able to assist pt. pt sat on EOB. completed bed mobility sit<>supine SBA with cues for techniques. pt requested to use the toilet again. sit to stand cGA from EOB and ambulated to the toilet using FWW CGA. completed sit to stand from the toilet min A using grab bar and ambulated back to chair using FWW CGA to min A. positioned pt on the chair. call light and table placed within reach. post-op folder provided and reviewed contents with pt. pt and niece without further concerns. Gait Assessment Gait Gait Assistance Required: Contact Guard Assist,Minimum Assistance Distance (Feet) 30 Able to Maintain Weight Bearing Status Yes During Gait Assistive Devices Assistive Device Gait Belt,Front Wheeled Walker Orthotic/Prosthetic Devices or Brace: No Gait Deviations General Gait Pattern Antalgic,Decreased Stride Length,Decreased Feet Clearance,Step-to Gait Factors Limiting Gait Function Factors Limiting Gait Function Decreased Activity Tolerance, Decreased Strength,Difficulty Following Directions,Limited Range of Motion,Pain,Poor Balance,Poor Safety Awareness PT-Balance Assessment Sitting Balance and Reactions Static Sitting Balance Ability Normal Dynamic Sitting Balance Ability Good Standing Balance and Reactions Static Standing Balance Ability Fair Dynamic Standing Balance Ability Fair Device Used FWW M5 PT-IP Objective Assessments Start: 12/24/23 17:25 Freq: NEEDED Status: Active Protocol: Document 12/24/23 15:55 AB (Rec: 12/24/23 17:39 AB [id number]) Orientation Orientation/Cognition Level of Alertness Alert Orientation Name,Place,Situation Safety Awareness Decreased Safety Awareness Memory Description No Deficits Noted Gross Range of Motion Lower Extremity ROM Impairments R knee flexion: ~ 90 deg Strength Lower Extremity Strength Assessment Right Impaired Hip 3+/5 Knee 3+/5 Coordination Assessment Gross Coordination Gross Coordination WNL Sensation Assessment Sensation Gross Sensation WNL Muscle Tone Muscle Tone WNL Yes M6 PT-IP Treatment Start: 12/24/23 17:25 Freq: NEEDED Status: Active Protocol: Document 12/24/23 15:55 AB (Rec: 12/24/23 17:39 AB [id number]) Physical Therapy Treatment Education Education Provided Precautions,Weight Bearing Status,Post-Op Packet,Safety M7 PT-IP Assessment and Plan Start: 12/24/23 17:25 Freq: NEEDED Status: Active Protocol: Document 12/24/23 15:55 AB (Rec: 12/24/23 17:39 AB [id number]) PT Summary Assessment and Plan Potential Rehabilitation Potential Good Status of Condition at Evaluation Evolving Summary Impairments Pain,ROM,Strength,Balance, Coordination,Sensation,Tone, Cognition,Bed Mobility, Transfers,Gait,Activity Tolerance Assessment Summary pt is an 83 y/o F s/p R TKA POD 0. pt is WBAT on RLE. pt requiring CGA to min A with mobility using FWW. pt plans to go home and her niece will be assisting her at home. caregiver training conducted and niece was able to assist pt safely. pt may go home when medically stable. Goals Bed Mobility Goal Independent Transfer Goal Independent,Front Wheeled Walker Gait Goal Independent,Front Wheel Walker Gait Distance 200 Days to Meet Goals 5 Frequency of Treatment Frequency Of Treatment Twice a Day Other frequency or as tolerated Treatment Plan Physical Therapy Treatment Plan Bed Mobility Training,Transfer Training,Gait Training, Therapeutic Exercise,Balance Retraining,Post Op Education, Discharge Planning,Hot or Cold Pack,Neuromuscular Re-ed, Coordination Retraining,Manual Therapy Weight Bearing Status Weight Bearing Status Weight Bear as Tolerated Allowed Weight Bearing Amount (enter % RLE WBAT or #) (%) Recommendations To Nursing Amount of Assist Needed 1 Person Assist Discharge Recommendations PT Discharge Recommendations Home with Assistance, Outpatient PT Transportation Needs at Discharge Private Vehicle
[2023-12-24] MEDS: OXYCODONE IR 5 MG TABLET PO ×2 (19:03→22:49)
[2023-12-24] MEDS: ACETAMINOPHEN 325 MG TABLET 650 MG PO (21:18)
[2023-12-24] MEDS: ASPIRIN EC 81 MG TABLET PO (21:18)
[2023-12-24] MEDS: APIXABAN 5 MG TABLET PO (21:19)
[2023-12-24] MEDS: carvediloL 3.125 MG TABLET 6.25 MG PO (21:19)
[2023-12-24] MEDS: DOCUSATE 100 MG CAPSULE PO (21:19)
[2023-12-24] MEDS: AMLODIPINE 5 MG TABLET PO (21:22)
[2023-12-25] MEDS: LACTATED RINGERS 1,000 ML 100 ML IV (01:13)
[2023-12-25] MEDS: CEFAZOLIN 2 GM/100 ML PREMIX 100 ML IV (02:40)
[2023-12-25 03:24] VITALS: BP 148/84; PULSE 79; RESP 19; TEMP 36.5; O2SAT 96
[2023-12-25] MEDS: OXYCODONE IR 5 MG TABLET PO ×3 (03:25→09:40)
[2023-12-25 05:26] LABS: Hematocrit 34.7 % (36-46); Hemoglobin 11.7 g/dL (12.0-16.0)
[2023-12-25] MEDS: ACETAMINOPHEN 325 MG TABLET 650 MG PO (05:28)
[2023-12-25] MEDS: ONDANSETRON 4 MG ODT PO ×2 (05:28→09:34)
--- NOTE | 2023-12-25 07:36 | PM.DS.1 ---
History of Present Illness History of Present Illness Date Patient Seen: 12/25/23 Time Patient Seen: 07:36 Chief complaint: RT TKA *OPB* Narrative: Operative Date/Time/Diagnoses Date of procedure: 12/24/23 Time of procedure: 11:30 Pre-op diagnosis: Right knee OA Post-op diagnosis: same Procedure & Clinicians Procedure: Right total knee arthroplasty Same procedure as scheduled: Yes Indications: The patient has had progressively worsening right knee pain with radiographic changes consistent with arthritis. Non-operative management has failed and the patient has requested total knee replacement. The risks, benefits and alternatives to surgery were discussed with the patient prior to proceeding. Risks discussed included, but were not limited to, failure to relieve pain, stiffness, infection, nerve damage, deep venous thrombosis, pulmonary embolism, stroke, coma, heart attack, permanent paralysis and , as well as the potential need for eventual revision of the prosthetic. Surgeon: Blaire Beard Gear Technician: Lionel Orantes Anesthesia Type: General and Peripheral nerve block Operative Notes Findings: Severe right knee OA, soft bone, adequate stability Closure Type: primary Specimen(s): none sent Prosthetic devices, grafts, tissues, transplants, or devices: Beard and nephew [employer] BCS 2 size 6 femur, size 4 tibia, +9 poly, 35 x 7-1/2 mm patella Estimated Blood Loss (mL): 250 Blood products transfused: none Tourniquet time (min): 69 Discharge Providers Provider Discharge Date: 12/25/23 Primary care physician: Harpal London Consults: 12/24/23 06:00 Consult to Anesthesiology Routine Comment: Consulting Provider: Anesthesiologist Reason for consultation: Regional block for post operative pain control Has provider been notified: No 12/24/23 13:50 Consult to Discharge Planning Routine Comment: Consult to Occupational Therapy Evaluate & Treat Comment: Physician Instructions: Evaluate and treat Consult to Physical Therapy Evaluate & Treat Comment: Physician Instructions: postop TKA protocol Discharge provider: Raquel Wesley PA-C Summary Hospital Course Discharge Diagnosis: Right knee osteoarthritis, s/p right total knee arthroplasty Hospital Course: Ms Fischer's hospital course was unremarkable. On the morning of POD# 1, she was feeling well and wanted to go home. She was eating and voiding without difficulty and her pain was well-controlled with oral medication. She was evaluated by PT throughout her stay and they felt she was appropriate for homegoing. Exam Vital Signs (past 8 hours): - 12/25/23 03:24 Temperature 97.7 F Pulse Rate 79 Respiratory Rate 19 Blood Pressure 148/84 H Pulse Oximetry 96 Oxygen Flow Rate 0 Oxygen Delivery Method Room Air Oxygen Flow Rate 0 Narrative Exam Narrative: 5/5 strength in hip flexors, quadriceps, hamstrings, DF, PF, EHL on right. Sensation to light touch intact throughout RLE, calf soft and compressible. ZION over Aquacel CDI. SCDs in place. Objective Labs 12/25/23 04:57 Labs: Laboratory Results - last 24 hr 12/25/23 04:57 Hgb 11.7 L Hct 34.7 L PFSH Medical History (Updated 12/16/23 @ 12:07 by Quita Hillman, RN) Chronic dyspnea Tricuspid regurgitation Pulmonary HTN History of cardioversion Scoliosis Anxiety about health Osteoarthritis Arthritis HTN (hypertension) VAMSHI on CPAP Afib Surgical History (Updated 12/16/23 @ 10:16 by Quita Hillman RN) History of surgery History of total left knee replacement (12/20/22) History of carpal tunnel surgery of right wrist Hx of breast augmentation Hx of foot surgery Hx of bilateral cataract extraction Hx of cosmetic surgery Social History household members: none Smoking Status: Former smoker alcohol intake: current Discharge Assessment & Plan Assessment and Plan Assessment: Right knee osteoarthritis, s/p right total knee arthroplasty Plan of Treatment: Discharge home, outpt PT, multimodal pain control, Eliquis as per preop for VTE prophylaxis. F/u in office as scheduled. Discharge Plan Discharge Plan Patient Disposition: Home Provider Discharge Comment: Pt received post-op rxs from office. Discharge orders & Medications Discharge Orders: Discharge (Order); Ordered 12/25/23 Ordered By: Raquel Wesley Prescriptions: Continued amlodipine [Norvasc] 5 MG tablet 5 mg PO BID Qty: 0 naltrexone 1.5 mg Capsule 1.5 mg PO DAILY carvedilol 6.25 mg Tablet 6.25 mg PO BID Rx Instructions: must administer with a meal/food acetaminophen 500 mg Tablet 500 mg PO BID lisinopril 30 mg Tablet 40 mg PO DAILY furosemide 20 mg Tablet 20 mg PO QAM Eliquis 5 mg Tablet 5 mg PO BID Follow up/Referrals: Harpal London [Primary Care Provider] - Blaire Beard MD [Physician] - 01/08/24 10:30 am (Follow up at [facility] office in [place].) Diet/Activity/Treatments Diet: Diet as Tolerated Activity: Weightbearing as tolerated. Walk frequently! Cold/Heat Therapy: Ice to knee as needed for pain. Skin/Wound/Dressing Care Report to your healthcare provider any signs of infection, such as:: chills, fever, night sweats and unusual redness Dressing: May remove ZION wrap and shower on 12/27/2023. Keep dressing in place until follow up in office. No bathing or otherwise soaking incision. Call the office if dressing becomes saturated inside. Visit Report/Discharge Packet Instructions: DI for Knee Replacement, DI for Prescription Opioid Use Stand Alone Forms: Patient Portal/API, Surgery Discharge Discharge Data Primary Care Provider: Harpal London Attending Provider: Blaire Berad Quality VTE Deep Vein Thrombosis/Pulmonary Embolism Present on Admission: No
--- NOTE | 2023-12-25 09:05 | PT.IPTN ---
Current Diagnoses Unilateral primary osteoarthritis, right knee (12/24/23) Surgery Performed Operation Date: 12/24/23 10:45 Actual Procedures p Total Knee Arthroplasty - Robot(Right) - Blaire Beard MD Physical Therapy Treatment Note M2 PT-IP Current Condition Start: 12/24/23 17:25 Freq: NEEDED Status: Discharge Protocol: Document 12/24/23 15:55 AB (Rec: 12/24/23 17:39 AB [id number]) Physical Therapy Current Condition Current Condition Evaluation Date 12/24/23 Treatment Diagnosis s/p R TKA; difficulty in walking Onset Date 12/24/23 M3 PT-IP Subjective Start: 12/24/23 17:25 Freq: NEEDED Status: Discharge Protocol: Document 12/25/23 09:05 AB (Rec: 12/25/23 12:49 AB [id number]) Subjective Physical Therapy Visit Type Type Treatment Note Visit Start Time 09:05 Visit Stop Time 09:40 Number of REGISTERED NURSING PROFESSOR Visits 0 Physical Therapy Visit Comments Patient Comments agreeable to do PT Therapy Pain Assessment Pain When Pain Assessed During Mobility Pain Present Pain Present Pain Reported Location Right Knee Intensity 8 Pain Management Techniques Apply Cold,Distraction, Modification of Treatment,Re- positioning,Timing of Activity with Medications M4 PT-IP Mobility and Gait Start: 12/24/23 17:25 Freq: NEEDED Status: Discharge Protocol: Document 12/25/23 09:05 AB (Rec: 12/25/23 12:49 AB [id number]) PT-Transfer Assessment Sit to and From Stand Sit to and from Stand Minimal Assistance,1 Person Assistance,Use of Upper Extremities Equipment Transfer Assistive Device Gait Belt,Front Wheeled Walker Orthotic/Prosthetic Devices or Brace: No Comments Mobility Comments pt seated on the chair and agreeable to do PT. pt asked her caregivers to leave. pt c /o increase R knee pain today. completed seated heel slides prior to standing. pt completed sit to stand min A and max cues. pt ambulated in room using FWW ~ 30 ft CGA. presents with slow paced gait but without LOB. pt sat back on the chair. pt's caregivers came back in. caregiver training was conducted yesterday. positioned pt on the chair. call light and table placed within reach. left pt with nurse and her nieces. Gait Assessment Gait Gait Assistance Required: Contact Guard Assist,1 Person Assist Distance (Feet) 30 Able to Maintain Weight Bearing Status Yes During Gait Assistive Devices Assistive Device Gait Belt,Front Wheeled Walker Orthotic/Prosthetic Devices or Brace: No Gait Deviations General Gait Pattern Antalgic,Decreased Stride Length,Decreased Feet Clearance,Step-to Gait Factors Limiting Gait Function Factors Limiting Gait Function Decreased Activity Tolerance, Difficulty Following Directions,Limited Range of Motion,Pain,Poor Balance M5 PT-IP Objective Assessments Start: 12/24/23 17:25 Freq: NEEDED Status: Discharge Protocol: Document 12/24/23 15:55 AB (Rec: 12/24/23 17:39 AB [id number]) Orientation Orientation/Cognition Level of Alertness Alert Orientation Name,Place,Situation Safety Awareness Decreased Safety Awareness Memory Description No Deficits Noted Gross Range of Motion Lower Extremity ROM Impairments R knee flexion: ~ 90 deg Strength Lower Extremity Strength Assessment Right Impaired Hip 3+/5 Knee 3+/5 Coordination Assessment Gross Coordination Gross Coordination WNL Sensation Assessment Sensation Gross Sensation WNL Muscle Tone Muscle Tone WNL Yes M6 PT-IP Treatment Start: 12/24/23 17:25 Freq: NEEDED Status: Discharge Protocol: Document 12/25/23 09:05 AB (Rec: 12/25/23 12:49 AB [id number]) Physical Therapy Treatment Exercises Exercises Heel Slides Education Education Provided Safety M7 PT-IP Assessment and Plan Start: 12/24/23 17:25 Freq: NEEDED Status: Discharge Protocol: Document 12/25/23 09:05 AB (Rec: 12/25/23 12:49 AB [id number]) PT Summary Assessment and Plan Potential Rehabilitation Potential Fair Summary Impairments Pain,ROM,Strength,Balance, Coordination,Sensation,Tone, Cognition,Bed Mobility, Transfers,Gait,Activity Tolerance Progress Towards Goals Slow Progress due to Pain Assessment Summary pt requiring min A with sit to stand and CGA with ambulation using FWW. c/o more R knee pain today affecting mobility. caregiver training was conducted yesterday and pt's niece knows how to assist her. pt plans to go home today. pt has out pt PT set up. Goals Bed Mobility Goal Independent Transfer Goal Independent,Front Wheeled Walker Gait Goal Independent,Front Wheel Walker Gait Distance 200 Days to Meet Goals 5 Frequency of Treatment Frequency Of Treatment Twice a Day Other frequency or as tolerated Treatment Plan Physical Therapy Treatment Plan Bed Mobility Training,Transfer Training,Gait Training, Therapeutic Exercise,Balance Retraining,Post Op Education, Discharge Planning,Hot or Cold Pack,Neuromuscular Re-ed, Coordination Retraining,Manual Therapy Weight Bearing Status Weight Bearing Status Weight Bear as Tolerated Allowed Weight Bearing Amount (enter % RLE WBAT or #) (%) Recommendations To Nursing Amount of Assist Needed 1 Person Assist Discharge Recommendations PT Discharge Recommendations Home with Assistance, Outpatient PT Transportation Needs at Discharge Private Vehicle
[2023-12-25 09:27] VITALS: BP 162/71; PULSE 84; RESP 18; TEMP 36.7; O2SAT 96
[2023-12-25] MEDS: DOCUSATE 100 MG CAPSULE PO (09:35)
[2023-12-25] MEDS: APIXABAN 5 MG TABLET PO (09:35)
[2023-12-25] MEDS: ASPIRIN EC 81 MG TABLET PO (09:35)
[2023-12-25 09:37] VITALS: BP 164/71
[2023-12-25] MEDS: lisinopriL 10 MG TABLET 40 MG PO (09:37)
[2023-12-25 09:39] VITALS: BP 164/71
[2023-12-25] MEDS: carvediloL 3.125 MG TABLET 6.25 MG PO (09:39)
[2023-12-25] MEDS: AMLODIPINE 5 MG TABLET PO (09:39)
--- NOTE | 2023-12-25 10:08 | PC.NURSE ---
Pt is dressed and ready for discharge home with Friends. IV has been removed. Went over d/c instructions with Pt and Friends-discussed d/c meds, time of last dose, reviewed stroke education, s/s of infection, showering, icing and elevating, and follow up. Encouraged Pt to drink plenty of fludis to prevent constipation or dehydration. Pt denied further questions and will be taken out via w/c by HIRED HAND to POV with friends and all belongings.
--- NOTE | 2023-12-25 11:04 | OT.IP.EVAL ---
Current Diagnoses Unilateral primary osteoarthritis, right knee (12/24/23) Surgery Performed Operation Date: 12/24/23 10:45 Actual Procedures p Total Knee Arthroplasty - Robot(Right) - Blaire Beard MD Past Medical History (Last Updated 12/16/23 @ 12:07 by Quita Hillman, RN) Afib Anxiety about health Arthritis Chronic dyspnea History of cardioversion HTN (hypertension) VAMSHI on CPAP Osteoarthritis Pulmonary HTN Scoliosis Tricuspid regurgitation Surgical History (Last Updated 12/16/23 @ 10:16 by Quita Hillman, RN) History of carpal tunnel surgery of right wrist History of surgery History of total left knee replacement (12/20/22) Hx of bilateral cataract extraction Hx of breast augmentation Hx of cosmetic surgery Hx of foot surgery Occupational Therapy Inpatient Evaluation/Re-Eval M1 PT/OT-IP Prior Functional Status Start: 12/24/23 17:25 Freq: NEEDED Status: Discharge Protocol: Document 12/24/23 15:55 AB (Rec: 12/24/23 17:39 AB [id number]) Medical Review Prior Functional Status Medical History Reviewed Yes Communication able to make needs known Mobility and Gait pt stated that she was independent with all mobilities and ambulation without AD indoors and uses a walking stick for outdoor mobility; still able to drive prior to sx Social History Household Members none Living Arrangements House Number of Floors (Floors) One Floor Number of Stairs To Enter/Railing? no steps to enter the house Home Environment High Toilet,Walk in Shower Home Equipment Front Wheel Walker,Shower Seat with Backrest,Hand Held Shower,Lift Recliner,Grab Bars Near Toilet,Grab Bars In Shower Additional Social History Comment pt plans to have her niece assist her at home. Niece stated that she will be staying with pt for ~ 2 weeks pt has an adjustable bed M1 PT/OT-IP Prior Functional Status Start: 12/25/23 10:52 Freq: NEEDED Status: Active Protocol: Document 12/25/23 10:52 [facility] (Rec: 12/25/23 11:04 [facility] [id number]) Medical Review Prior Functional Status Medical History Reviewed Yes Communication able to make needs known Mobility and Gait pt stated that she was independent with all mobilities and ambulation without AD indoors and uses a walking stick for outdoor mobility; still able to drive prior to sx Activities of Daily Living and IADL's Pt needign increased time for needs due to pain . Social History Household Members none Living Arrangements House Number of Floors (Floors) One Floor Number of Stairs To Enter/Railing? no steps to enter the house Home Environment High Toilet,Walk in Shower Home Equipment Front Wheel Walker,Shower Seat with Backrest,Hand Held Shower,Lift Recliner,Grab Bars Near Toilet,Grab Bars In Shower Additional Social History Comment pt plans to have her niece assist her at home. niece stated that she will be staying with pt for ~ 2 weeks pt has an adjustable bed M2 OT-IP Current Condition Start: 12/25/23 10:52 Freq: Status: Active Protocol: Document 12/25/23 10:52 [facility] (Rec: 12/25/23 11:04 [facility] [id number]) Occupational Therapy Current Condition Current Condition Evaluation Date 12/25/23 Treatment Diagnosis S/P L TKA M3 OT- IP Subjective and Pain Start: 12/25/23 10:52 Freq: Status: Active Protocol: Document 12/25/23 10:52 [facility] (Rec: 12/25/23 11:04 [facility] [id number]) OT- Subjective Occupational Therapy Visit Type Type Initial Evaluation Visit Start Time 10:00 Visit Stop Time 10:35 Occupational Therapy Visit Comments Patient Comments Pt agreed to get dressed. Patient/Caregiver Goals TO go home. OT Pain Assessment Pain When Pain Assessed During Mobility Pain Present Pain Present Pain Reported M4 OT- IP ADL's Start: 12/25/23 10:52 Freq: Status: Active Protocol: Document 12/25/23 10:52 [facility] (Rec: 12/25/23 11:04 [facility] [id number]) OT [id number] Comments OT Self-Feeding Comments NO issues. OT ADL-Grooming Comments OT Grooming Comments Not performed. OT ADL-Oral Care Comments Oral Care Comments Not performed. OT ADL-Dressing General Eval Upper Body Dressing Ability Maximum Assistance Lower Body Dressing Ability Maximum Assistance Comments OT Dressing Comments Pt just wanting assist and has LB dressing equipment at home to assist. Educated to dress the LLE first and take out last. OT ADL-Toileting General Evaluation Toileting Ability Minimal Assistance Areas Needing Assistance Manage Clothing Comments OT Toileting Comments Assist for clothing and CGA for balance while pt pulling up her clothing. OT ADL-Bathing Comments OT Bathing Comments Pt will have assist at home. Educated of care of the dressing. M5 OT- IP IADL's Start: 12/25/23 10:52 Freq: Status: Active Protocol: Document 12/25/23 10:52 [facility] (Rec: 12/25/23 11:04 [facility] [id number]) OT-Instrumental Activities of Daily Living Deficits IADL Deficits Identified Deficits M6 OT- IP Functional Cognition Start: 12/25/23 10:52 Freq: Status: Active Protocol: Document 12/25/23 10:52 [facility] (Rec: 12/25/23 11:04 [facility] [id number]) Cognitive Factors Limiting Selfcare Function Cognitive Ability Level of Alertness Alert Patient Orientation Name,Age,Birthday,Month,Date, Year,Day of Week,Place, Situation Attention Span Ability Capable of Focused Attention, Capable of Sustained Attention Ability to Follow Commands Able to Follow One Step Commands Cognitive Comments Cognitive Assessment Comments Pt able to follow commands for ADL and mobility needs and is a little insistent on her care. Pt's niece able to safely assist pt for all needs . M7 OT- IP Mobility and Balance Start: 12/25/23 10:52 Freq: Status: Active Protocol: Document 12/25/23 10:52 [facility] (Rec: 12/25/23 11:04 [facility] [id number]) OT-Transfer Assessment Sit to and From Stand Sit to and from Stand Standby Assistance,Contact Guard Assistance,Minimal Assistance Comments Mobility Comments Pt needing ALMA ROSA from lower surfaces. OT- Balance Assessment Sitting Balance and Reactions Static Sitting Balance Ability Good Dynamic Sitting Balance Ability Good Standing Balance and Reactions Static Standing Balance Ability Fair Dynamic Standing Balance Ability Fair M8 OT- IP Objective Assessments Start: 12/25/23 10:52 Freq: Status: Active Protocol: Document 12/25/23 10:52 [facility] (Rec: 12/25/23 11:04 [facility] [id number]) OT Gross Range of Motion Upper Extremity Range of Motion Assessment Bilaterally Impaired OT Strength Upper Extremity Strength Assessment Bilaterally Impaired Comments Strength Comments Pt at least 3-/5, pt has arthritis M9 OT- IP Assessment and Plan Start: 12/25/23 10:52 Freq: Status: Active Protocol: Document 12/25/23 10:52 [facility] (Rec: 12/25/23 11:04 [facility] [id number]) OT Summary Assessment and Plan Potential Rehabilitation Potential Good Analytic Complexity at Evaluation Low Summary OT Impairments Pain,Strength,Balance, Functional Mobility,Grooming, Dressing,Toileting,Bathing, Toilet Transfers,Shower Transfers,Activity Tolerance Progress Towards Goals Progressing Toward Goals Assessment Summary Pt low complexity and main barrier is pain. Pt has a supportive niece to assist with all her needs. Pt to go home with 24/7 available assist and outpt PT. Goals Self-Feeding Goal Independent Grooming Goal Independent Dressing Goal Independent Toileting Goal Independent Bathing Goal Standby Assistance Toilet Transfer Goal Independent Shower Transfer Goal Standby Assistance Days to Meet Goals 10 Frequency of Treatment Frequency Of Treatment Once a Day Treatment Plan OT Treatment Plan ADL Training,Functional Mobility,Patient/Family Education,Discharge Planning Discharge Recommendations OT Discharge Recommendations Home with 24/7 Assist Available,Outpatient PT Transportation Needs at Discharge Private Vehicle
--- NOTE | 2023-12-25 11:15 | CM.DANOTE ---
Brief DCP Assessment Note Pt is a 83yo F here following right total knee surgery with Dr. Beard on 12.24.23 PCP Harpal Byrnes Medicare and Cece SAMS reviewed EMR. Per OT/PT rec home with assistance. Per OT/PT note, indep at baseline, has appropriate DME, and family to support at home. Pt lives in [place] and is indep at baseline. Pt left prior to being seen by this MOLD CUTTING MACHINE OPERATOR P: home today with family. No identified barriers to safe dc home. CM team will follow as needed LATRELL Baez Discharge Planning/Care Management CM Discharge Assessment Start: 12/25/23 11:10 Freq: Status: Active Protocol: Document 12/25/23 11:10 SL (Rec: 12/25/23 11:14 [id number]) Discharge Planning Assessment Assigned Cafe Assistant Latrell Ma DPOA/Assigned Designee Name bonita Lima Contact Information [phone] Advance Directives? Yes Advance Directives on File No History Provided By Patient,Medical Record Prior Living Arrangements House Household Members none Independent with ADL's Yes Is patient alert and oriented? Yes DME Already Rented / Owned Bath Bench,Elevated Toilet Seat,FWW / Walker,Other Discharge Plan Home Transportation Arrangement Daughter Referrals Initiated None needed Whiteboard Updated in Patient Room with No name and ext. # of Cafe Assistant Review Status In Process Please Provide Date Initial DC 12/25/23 Assessment Was Performed Next Review Type Continued Stay Review Pre-Anesthesia Assessment Start: 12/16/23 09:46 Freq: Status: Discharge Protocol: Document 12/16/23 09:46 CAB (Rec: 12/16/23 10:58 CAB [id number]) Pre-Anesthesia Assessment Preferred Name Janessa Patient Information Reviewed Via Phone Assessment Assessment Completed With Patient Diagnostic Results BMP/CMP,CBC,EKG Comment Outside labs/EKG scanned Primary Care Provider Harpal [place] Comment Pre-op 12/04/23, clearance form 11/21/23 scanned and in surgery folder Seen Specialist in Last 12 Months Yes Specialist Seen Production Operator,Orthopedist,Sleep specialist Primary Language Panamanian Preferred Language Panamanian Decaler Required No Height 170.18 cm Weight 63.503 kg Body Mass Index (BMI) 21.9 Hearing Ability Normal Visual Impairment No Limitations Visual Assist None Dentition Type Teeth, Natural Present Barriers to Learning Age related,Memory Hx Anesthesia Reactions No Hx Family Anesthesia Reaction No Hx Malignant Hyperthermia No Hx Blood Transfusions No Anesthesia Review Requested No Cook Larder No alcohol intake current alcohol intake frequency holidays/special occasions only Smoking Status Former smoker Tobacco type cigarettes how long ago did patient quit smoking Quit 1967 Substance Use Type other Comment CBD tincture Pain Present Pain Reported Musculoskeletal Symptoms Abnormal Gait,Back Pain, Difficulty Walking,Joint Pain History of Falling (Recent or History of No ) Patient is completely paralyzed or No completely immobile Prosthesis or Orthotic Device Cane,Front Wheel Walker Mental Status Oriented to own ability Is patient on oxygen? No Does patient have [place]/SOB Yes Hx Sleep Apnea Yes CPAP/BIPAP use prescribed and used routinely Will Bring CPAP/BIPAP DOS Yes Currently Taking a Beta Kory Yes: Carvedilol Can You Climb a Flight of Stairs Without No SOB Hx Chest Pain No Hx SOB Yes Hx Syncope or Dizziness No Anti-Coagulant Therapy Yes: Eliquis-pt will check w/ cardiology or surgeon on when to hold Has a Production Operator Yes: Visit 08/08/[address] Malin Cardiac Testing No Hx Pacemaker/ICD No Pacemaker Rep Required? No Cardiac Clearance Received Yes Comment Cardiac records scanned and in surgery folder Diet Type At Home Regular Dysphagia No Gastrointestinal Symptoms None Bladder Pattern Frequency,Urgency Urinary Catheter Present No Hx Urinary Self Catheterization No Diabetes No Patient No Lactating No Hx Drug Resistant Organism Yes: MRSA Presence of External or Internal Medical Yes: Bilat eye IOLs, CPAP, Devices Left great toe, left knee Received a COVID vaccine? Yes Marital Status / Lives With none Current Living Arrangements House Number of Floors (Floors) One Floor Number of Stairs To Enter/Railing? None Support System Family Does the Patient Have Assistance After Yes: Saadia's will stay Surgery with pt to assist @ [place] Patient Discharge Plan Description Return Home Comment Pt not advised on length of stay per surgeon Additional comment Lives on [facility] Feels Safe in Current Environment Yes Been Physically Hurt or Threatened By a No Person in Current Environment Do you have thoughts of harming yourself None or others? Are you currently considering suicide? No Do you have a plan to hurt yourself or No Plan others? Do You Have Any Spiritual Beliefs That No May Affect Your HC Choices? Do You Have Any Cultural Practices That No May Affect Your HC Choices? Comment Jain Who Can We Speak to About Patient's Care Family, friends Identifying Code for Release of Patient Declines to issue Information Health Care Proxy/Next of Kin Janie Mason (good friend) Health Care Proxy Emergency Contact Name Steven (saadia's ) Emergency Contact Advance Directives? Yes Advance Directives on File No Power of Cma Yes Power of Cma Name Johny Mckeon (friend) Power of Cma or [phone] PAC Instructions Bring CPAP/BIPAP,Do not shave/ clip surgical site,Durable medical equipment,Medications to take/avoid,Nasal antibiotic ,No ETOH/petroleum product on skin DOS,NPO,Post-op transportation,Pre-surgical wash,Sensory aids,Sturdy shoes /comfortable clothes,Do not bring valuables and remove jewelry
== END 2023-12-25 10:49 | disposition home or self-care (01) ==
LOC: OR 09:04 → AC 09:05
PROVIDERS: PCP Student in an Organized Health Care Education/Training Program; Referring Provider Orthopaedic Surgery; Visit Provider Orthopaedic Surgery
PROC: 0SRC0JZ Replacement of Right Knee Joint with Synthetic Substitute, Open Approach (ICD-10-PCS; CPT 27447; principal; 2023-12-24 10:45)
DX: M17.11 Unilateral primary osteoarthritis, right knee (principal); G89.18 Other acute postprocedural pain; M25.761 Osteophyte, right knee
CPT/HCPCS: 27447; 64450; 73560; 85014; 85018; 97116; 97162; 97165; 97530; 97535; C1776; C9290; J0171; J0690; J1100; J2405; J2704; J3010

== ENCOUNTER → 2024-06-12 10:42 | Outpatient (CLI) | payer MEDICARE, BC, SELFPAY ==
[2023-12-24 14:06] VITALS: BMI 21.1
== END ==
PROVIDERS: PCP Student in an Organized Health Care Education/Training Program; Referring Provider Student in an Organized Health Care Education/Training Program; Visit Provider Physician Assistant
DX: L97.822 Non-pressure chronic ulcer of other part of left lower leg with fat layer exposed (principal); I87.2 Venous insufficiency (chronic) (peripheral); L53.9 Erythematous condition, unspecified; R60.0 Localized edema; I48.91 Unspecified atrial fibrillation; I10 Essential (primary) hypertension; Z79.01 Long term (current) use of anticoagulants
CPT/HCPCS: 11042; 87070; 87075; 87077; 87186; 87205; 99204; 99214

== ENCOUNTER → 2024-06-24 10:54 | Outpatient (CLI) | payer MEDICARE, BC, SELFPAY ==
[2023-12-24 14:06] VITALS: BMI 21.1
== END ==
LOC: WC 10:57
PROVIDERS: PCP Student in an Organized Health Care Education/Training Program; Referring Provider Student in an Organized Health Care Education/Training Program; Visit Provider Surgery
DX: L97.822 Non-pressure chronic ulcer of other part of left lower leg with fat layer exposed (principal); I87.2 Venous insufficiency (chronic) (peripheral); R60.0 Localized edema; R23.4 Changes in skin texture; I10 Essential (primary) hypertension; Z79.01 Long term (current) use of anticoagulants
CPT/HCPCS: 11042; 99213

== ENCOUNTER → 2024-07-01 10:59 | Outpatient (CLI) | payer MEDICARE, BC, SELFPAY ==
[2023-12-24 14:06] VITALS: BMI 21.1
== END ==
PROVIDERS: PCP Student in an Organized Health Care Education/Training Program; Referring Provider Student in an Organized Health Care Education/Training Program; Visit Provider Surgery
DX: I87.2 Venous insufficiency (chronic) (peripheral) (principal); L97.822 Non-pressure chronic ulcer of other part of left lower leg with fat layer exposed; I10 Essential (primary) hypertension; R23.4 Changes in skin texture; R60.0 Localized edema; L53.8 Other specified erythematous conditions; Z79.01 Long term (current) use of anticoagulants
CPT/HCPCS: 11042

== ENCOUNTER → 2024-07-01 11:01 | Outpatient (CLI) | payer MEDICARE, BC, SELFPAY ==
[2023-12-24 14:06] VITALS: BMI 21.1
--- NOTE | 2024-07-01 11:03 | DI.US.S_ITS ---
PROCEDURE: US ARTERIAL DUPLEX LE LT INDICATIONS: non-healing ulcer on left medial lower leg TECHNIQUE: Color and pulse Doppler interrogation was performed of the left lower extremity arterial system, with image documentation. COMPARISON: None. FINDINGS: Common femoral artery: 79 cm/sec, with triphasic flow. Deep femoral artery: 84 cm/sec, with triphasic flow. Proximal superficial femoral artery: 68 cm/sec, with triphasic flow. Mid superficial femoral artery: 71 cm/sec, with triphasic flow. Distal superficial femoral artery: 96 cm/sec, with triphasic flow. Popliteal artery: 61 cm/sec, with triphasic flow. Posterior tibial artery: 72 cm/sec, with triphasic flow. Anterior tibial artery/dorsalis pedis: 98 cm/sec, with triphasic flow. [place]-scale imaging description: Calcified plaque throughout the left common femoral artery and proximal SFA. IMPRESSION: No hemodynamically significant stenosis involving the left lower extremity arterial system. Dictated by: Antonio Montana M.D. on 07/01/2024 at 15:37 Approved by: Antonio Montana M.D. on 07/01/2024 at 15:39
== END ==
PROVIDERS: PCP Student in an Organized Health Care Education/Training Program; Referring Provider Physician Assistant; Visit Provider Physician Assistant
DX: L97.822 Non-pressure chronic ulcer of other part of left lower leg with fat layer exposed (principal); I70.202 Unspecified atherosclerosis of native arteries of extremities, left leg; I87.2 Venous insufficiency (chronic) (peripheral); I10 Essential (primary) hypertension; R23.4 Changes in skin texture; R60.0 Localized edema; L53.8 Other specified erythematous conditions; Z79.01 Long term (current) use of anticoagulants
CPT/HCPCS: 11042; 93926

== ENCOUNTER → 2024-07-08 11:15 | Outpatient (CLI) | payer MEDICARE, BC, SELFPAY ==
[2023-12-24 14:06] VITALS: BMI 21.1
== END ==
LOC: WC 11:16
PROVIDERS: PCP Student in an Organized Health Care Education/Training Program; Referring Provider Student in an Organized Health Care Education/Training Program; Visit Provider Surgery
DX: I87.2 Venous insufficiency (chronic) (peripheral) (principal); L97.822 Non-pressure chronic ulcer of other part of left lower leg with fat layer exposed; I10 Essential (primary) hypertension; R60.0 Localized edema; L98.8 Other specified disorders of the skin and subcutaneous tissue
CPT/HCPCS: 11042; 99213

== ENCOUNTER → 2024-07-14 10:35 | Outpatient (CLI) | payer MEDICARE, BC, SELFPAY ==
[2023-12-24 14:06] VITALS: BMI 21.1
== END ==
PROVIDERS: PCP Student in an Organized Health Care Education/Training Program; Referring Provider Student in an Organized Health Care Education/Training Program; Visit Provider Surgery
DX: I87.2 Venous insufficiency (chronic) (peripheral) (principal); L97.822 Non-pressure chronic ulcer of other part of left lower leg with fat layer exposed; I10 Essential (primary) hypertension
CPT/HCPCS: 11042; 87070; 87075; 87077; 87186; 87205

== ENCOUNTER → 2024-07-21 10:46 | Outpatient (CLI) | payer MEDICARE, BC, SELFPAY ==
[2023-12-24 14:06] VITALS: BMI 21.1
== END ==
LOC: WC 11:07
PROVIDERS: PCP Student in an Organized Health Care Education/Training Program; Referring Provider Student in an Organized Health Care Education/Training Program; Visit Provider Surgery
DX: I87.2 Venous insufficiency (chronic) (peripheral) (principal); L97.822 Non-pressure chronic ulcer of other part of left lower leg with fat layer exposed; L98.8 Other specified disorders of the skin and subcutaneous tissue; R60.0 Localized edema; I10 Essential (primary) hypertension
CPT/HCPCS: 11042

== ENCOUNTER → 2024-07-28 10:30 | Outpatient (CLI) | payer MEDICARE, BC, SELFPAY ==
[2023-12-24 14:06] VITALS: BMI 21.1
== END ==
LOC: WC 10:31
PROVIDERS: PCP Student in an Organized Health Care Education/Training Program; Referring Provider Student in an Organized Health Care Education/Training Program; Visit Provider Surgery
DX: L97.822 Non-pressure chronic ulcer of other part of left lower leg with fat layer exposed (principal); I87.2 Venous insufficiency (chronic) (peripheral); R60.0 Localized edema; I10 Essential (primary) hypertension; I48.91 Unspecified atrial fibrillation; Z79.01 Long term (current) use of anticoagulants
CPT/HCPCS: 15271; Q4186

== ENCOUNTER → 2024-08-04 10:50 | Outpatient (CLI) | payer MEDICARE, BC, SELFPAY ==
[2023-12-24 14:06] VITALS: BMI 21.1
== END ==
PROVIDERS: PCP Student in an Organized Health Care Education/Training Program; Referring Provider Student in an Organized Health Care Education/Training Program; Visit Provider Surgery
DX: I87.2 Venous insufficiency (chronic) (peripheral) (principal); L97.922 Non-pressure chronic ulcer of unspecified part of left lower leg with fat layer exposed; I10 Essential (primary) hypertension
CPT/HCPCS: 15271; 99213; Q4186

== ENCOUNTER → 2024-08-11 10:29 | Outpatient (CLI) | payer MEDICARE, BC, SELFPAY ==
[2023-12-24 14:06] VITALS: BMI 21.1
== END ==
PROVIDERS: PCP Student in an Organized Health Care Education/Training Program; Referring Provider Student in an Organized Health Care Education/Training Program; Visit Provider Surgery
DX: I87.2 Venous insufficiency (chronic) (peripheral) (principal); L97.822 Non-pressure chronic ulcer of other part of left lower leg with fat layer exposed; L98.8 Other specified disorders of the skin and subcutaneous tissue; R60.0 Localized edema; I10 Essential (primary) hypertension
CPT/HCPCS: 15271; Q4186

== ENCOUNTER → 2024-08-18 10:30 | Outpatient (CLI) | payer MEDICARE, BC, SELFPAY ==
[2023-12-24 14:06] VITALS: BMI 21.1
--- NOTE | 2024-08-18 | OV.WND_ITS ---
PROGRESS NOTE DETAILS PATIENT NAME: JESSE CARBALLO PATIENT NUMBER: [id number] CLINICIAN: MUSTAPHA GALVEZ RN PATIENT DATE OF : 1940 PHYSICIAN / STEELSCOPE OPERATOR: RHODA WEST PATIENT SUBJECTIVE CHIEF COMPLAINT THIS INFORMATION WAS OBTAINED FROM THE PATIENT. LEFT LEG GENERAL NOTES LEFT LEG VENOUS ULCER. ALLERGIES NO KNOWN ALLERGIES HPI THIS INFORMATION WAS OBTAINED FROM THE PATIENT. THE FOLLOWING HPI ELEMENTS WERE DOCUMENTED FOR THE PATIENT'S WOUND: LOCATION: LLE DURATION: 02/27/24 CONTEXT: VENOUS THE PATIENT IS AN 83-YEAR-OLD FEMALE WITH ATRIAL FIBRILLATION, HYPERTENSION, AND VENOUS INSUFFICIENCY WHO RETURNS TODAY FOR FOLLOW UP OF VENOUS ULCER OF THE LEFT LOWER EXTREMITY. THE PATIENT HAS HAD 3 APPLICATIONS OF EPI FIX WITH TWO-LAYER LIGHT COMPRESSION. SHE IS NOT CURRENTLY ON ANY ANTIBIOTICS. THE PATIENT DENIES ANY PAIN OR DISCOMFORT AND HAS NOT HAD ANY FEVER OR CHILLS. SHE REPORTS A GOOD APPETITE AND IS TAKING PROTEIN SUPPLEMENTS. SHE DENIES HAVING ANY OTHER RECENT CHANGES IN HER OVERALL HEALTH. PAST HISTORY IS REMARKABLE FOR CHRONIC VENOUS INSUFFICIENCY. SHE DID HAVE A VENOUS ULCER ON THE RIGHT LOWER EXTREMITY MANY YEARS AGO. SHE HAS NO PRIOR HISTORY OF DVT. THE PATIENT IS EAGER TO HEAL THE ULCER SOON POSSIBLE SO THAT SHE CAN HAVE SHOULDER SURGERY. THE PATIENT IS ON CHRONIC ANTICOAGULATION. ON EXAM TODAY THE ULCER MEASUREMENTS ARE CONTINUING TO IMPROVE, NO SIGN OF INFECTION. OVERALL THERE HAS BEEN A 85% IMPROVEMENT. LABS: 07/14/24: CULTURE GREW E. COLI 07/01/24: ARTERIAL DOPPLER: NO HEMODYNAMICALLY SIGNIFICANT STENOSIS INVOLVING THE LEFT LOWER EXTREMITY ARTERIAL SYSTEM. 06/12/24: CULTURES GREW E. COLI 04/28/24: WBC 6.2, HGB 11.7, HCT 36.0, MCV 91.6, NA 137, GLUCOSE 100, CR 0.8, GFR 72, AST 31, ALT 24, ALK PHOS 144 MEDICAL HISTORY THIS INFORMATION WAS OBTAINED FROM THE PATIENT. PATIENT HAS A MEDICAL HISTORY OF: LYMPHEDEMA JESSE CARBALLO [id number] 1940 OSTEOARTHRITIS OF RIGHT SHOULDER HYPERTENSION ATRIAL FIBRILLATION ADDITIONAL INFORMATION DOES PATIENT HAVE A HISTORY OF CANCER? YES? COMPLETE ALL QUESTIONS.: NO SURGICAL HISTORY THIS INFORMATION WAS OBTAINED FROM THE PATIENT. PATIENT HAS A SURGICAL HISTORY OF: TONSILLECTOMY- HAMMER TOE AND BUNION REPAIR- (LEFT FOOT) KNEE REPLACEMENT- (BILATERAL) OBJECTIVE VITALS HEIGHT/LENGTH: 66 IN (167.64 CM), WEIGHT: 139.7 LBS (63.5 KGS), BMI: 22.5, TEMPERATURE: 99.3 ?F (37.39 ?C), PULSE: 95 BPM, RESPIRATORY RATE: 18 BREATHS/MIN, BLOOD PRESSURE: 171/82 MMHG, PULSE OXIMETRY: 98 %. PHYSICAL EXAM CONSTITUTIONAL: VITAL SIGNS REVIEWED AND NOTED. WELL DEVELOPED, WELL NOURISHED, AND IN NO ACUTE DISTRESS. ALERT AND ORIENTED X3. RESPIRATORY: EVEN RESPIRATIONS WITHOUT USE OF ACCESSORY MUSCLES. NO INTERCOASTAL RETRACTIONS NOTED. EVEN AND NON LABORED RESPIRATION. INTEGUMENTARY (HAIR, SKIN): MILD HEMOSIDERIN, VARICOSE VEINS. NO SWELLING OR TENDERNESS. SEE WOUND ASSESSMENT. SKIN WARM AND DRY. NO RASHES. NEUROLOGICAL: SENSATION: SYMMETRIC FUNCTION BY INFORMAL OBSERVATION. PSYCHIATRIC: ORIENTATION TO TIME, PLACE AND PERSON: NORMAL AFFECT WITH NORMAL THOUGHT PATTERN. ADDITIONAL INFORMATION THE PATIENT'S POTENTIAL TO HEAL IS: FAIR. WOUND ASSESSMENT(S) WOUND #1 LEFT, MEDIAL LEG IS A CHRONIC FULL THICKNESS VENOUS ULCER ACQUIRED ON 02/27/2024 AND HAS RECEIVED A STATUS OF NOT HEALED. INITIAL WOUND ENCOUNTER MEASUREMENTS ARE 1.6CM LENGTH X 1CM WIDTH X 0.2 CM DEPTH, WITH AN AREA OF 1.6 SQ CM AND A VOLUME OF 0.32 CUBIC CM.INITIAL WOUND ENCOUNTER PREVIOUS MEASUREMENTS FROM 08/11/2024 ARE 2.3CM LENGTH X 1.1CM WIDTH X 0.2CM DEPTH, WITH AN AREA OF 2.53 SQ CM AND A VOLUME OF 0.506 CUBIC CM. ADIPOSE IS EXPOSED. NO TUNNELING HAS BEEN NOTED. NO SINUS TRACT HAS BEEN NOTED. NO UNDERMINING HAS BEEN NOTED. THERE IS A MODERATE AMOUNT OF SEROSANGUINEOUS DRAINAGE NOTED WHICH HAS NO ODOR. THE PATIENT REPORTS A WOUND PAIN OF LEVEL 0/10. THE WOUND MARGIN IS ATTACHED WOUND BED HAS YES, BRIGHT RED, PINK, FIRM, GRANULATION, YES SLOUGH, NO ESCHAR, NO EPITHELIALIZATION. THE PERIWOUND SKIN EXHIBITED EDEMA AND HEMOSIDEROSIS. THE PERIWOUND SKIN DID NOT EXHIBIT BRAWNY INDURATION, EXCORIATION, INDURATION, CALLUS, CREPITUS, FLUCTUANCE, RASH, MACERATION, ATROPHIE CEDRICK, CYANOSIS, ECCHYMOSIS, ERYTHEMA, PALLOR AND RUBOR. THE PERIWOUND SKIN WAS NOT FRIABLE, DRY/SCALY AND MOIST. THE TEMPERATURE OF THE PERIWOUND SKIN IS WNL. PERIWOUND SKIN DOES NOT EXHIBIT SIGNS OR SYMPTOMS OF INFECTION. LOCAL PULSE IS PALPABLE. JESSE CARBALLO [id number] 1940 GENERAL NOTES MEASURED AT AN ANGLE. ADDITIONAL INFORMATION OTHER DEVITALIZED TISSUE PRESENT: BIOFILM SUGEY/VASCULAR COMPLETED?: 06/12/24, ARTERIAL ULTRASOUND COMPLETED. RESULTS?: NO ARTERIAL INSUFFICIENCY. ASSESSMENT ACTIVE PROBLEMS ICD-10 (ENCOUNTER DIAGNOSIS) L97.922 - NON-PRESSURE CHRONIC ULCER OF UNSPECIFIED PART OF LEFT LOWER LEG WITH FAT LAYER EXPOSED (ENCOUNTER DIAGNOSIS) I87.2 - VENOUS INSUFFICIENCY (CHRONIC) (PERIPHERAL) (ENCOUNTER DIAGNOSIS) I10 - ESSENTIAL (PRIMARY) HYPERTENSION GENERAL NOTES VENOUS ULCER LEFT LOWER EXTREMITY, MEASUREMENTS IMPROVED THE FOLLOWING FACTORS HAVE BEEN IDENTIFIED THAT MAY AFFECT WOUND HEALING: DEVITALIZED TISSUE BIOFILM VENOUS INSUFFICIENCY INFECTION CHRONIC ANTICOAGULATION ADVANCED AGE GOALS: REMOVE DEVITALIZED TISSUE REMOVE AND PREVENT BIOFILM COMPRESSION TREAT INFECTION ASSESS ARTERIAL CIRCULATION WOUND CLOSURE PREVENT RECURRENCE PLAN: DEBRIDEMENT, PLACEMENT OF 4TH EPI FIX WITH TWO-LAYER LIGHT COMPRESSION. ELEVATE LEG WHEN POSSIBLE, CONTINUE PROTEIN SUPPLEMENTATION, AWAIT RESULTS OF VEIN MAPPING, FOLLOW UP IN 1 WEEK FOR A RECHECK. PROCEDURES WOUND #1 WOUND #1 (VENOUS ULCER) IS LOCATED ON THE LEFT, MEDIAL LEG. A SKIN/SUBCUTANEOUS TISSUE LEVEL SURGICAL DEBRIDEMENT WITH A TOTAL AREA DEBRIDED OF 1.6 SQ CM. WAS PERFORMED BY RHODA WEST MD. SUBCUTANEOUS WAS REMOVED ALONG WITH DEVITALIZED TISSUE: BIOFILM, EXUDATE AND SLOUGH. THE FOLLOWING INSTRUMENT(S) WERE USED: CURETTE. PAIN CONTROL WAS ACHIEVED USING EMLA LIDOCAINE/PRILOCAINE 2.5%/2.5%. A TIME OUT WAS CONDUCTED PRIOR TO THE START OF THE PROCEDURE. A MODERATE AMOUNT OF BLEEDING WAS CONTROLLED WITH SILVER NITRATE. THE PROCEDURE WAS TOLERATED WELL WITH A PAIN LEVEL OF 0 THROUGHOUT AND A PAIN LEVEL OF 0 FOLLOWING THE PROCEDURE. POST DEBRIDEMENT MEASUREMENTS: 1.6CM LENGTH X 1CM WIDTH X 0.3CM DEPTH; WITH AN AREA OF 1.6 SQ CM AND A VOLUME OF 0.48 CUBIC CM. ADDITIONAL INFORMATION JESSE CARBALLO [id number] 1940 MUSCLE FASCIA OR BONE REMOVED AND SENT TO PATHOLOGY?: NO WOUND #1 (VENOUS ULCER) IS LOCATED ON THE LEFT, MEDIAL LEG. A SKIN SUBSTITUTE PROCEDURE WAS PERFORMED USING EPIFIX 18MM DISK BY RHODA WEST MD WITH AN APPLICATION AREA OF 1.6 SQ CM. THE LOT # WAS [id number] AND THE ORDER # WAS [id number]. THE PRODUCT EXPIRATION DATE WAS 03/10/2029. THE PRODUCT WAS NOT FENESTRATED. 0.4 SQ CM OF PRODUCT WAS WASTED DUE TO WOUND SIZE SMALLER THAN DRESSING. 1.6 SQ CM OF PRODUCT WAS UTILIZED AND WAS SECURED WITH STERI-STRIPS. POST APPLICATION, A DRESSING WAS APPLIED: ADAPTIC, AQUACEL. A TIME OUT WAS CONDUCTED PRIOR TO THE START OF THE PROCEDURE. THE PROCEDURE WAS TOLERATED WELL WITH A PAIN LEVEL OF 0 THROUGHOUT AND A PAIN LEVEL OF 0 FOLLOWING THE PROCEDURE. ADDITIONAL INFORMATION NORMAL SALINE LOT NUMBER: [id number] NORMAL SALINE EXPIRATION DATE: 03/10/2026 POSITIVE RESPONSE VISIBLE FROM PREVIOUS APPLICATION?: YES APPLICATION NUMBER:: 4 IS SENIOR FINANCIAL REPORTING ACCOUNTANT'S SERIAL NUMBER AND EXPIRATION DATE RECORDED ON TISSUE LOG?: YES IS WOUND FREE OF INFECTION AND NECROSIS?: YES EXPOSED BONE?: NO DATE OF ONSET AND PREVIOUS THERAPIES DOCUMENTED?: YES DOCUMENTATION OF ULCER BEING PRESENT FOR 4 WEEKS OR MORE?: YES DOES WOUND MEASURE GREATER THAN 1.0 SQ. CM?: YES ARE THE MEASUREMENTS AT BASELINE, FOLLOWING CESSATION OF CONSERVATIVE [place] AND PRIOR TO APPLICATION OF PRODUCT DOCUMENTED?: YES IS SUGEY GREATER THAN 0.60 DOCUMENTED?: YES HAS THE PATIENT STOPPED SMOKING OR HAVE THEY HAD DOCUMENTED TOBACCO USE/SMOKING CESSATION COUNSELING?: YES IS THERE DOCUMENTATIONS OF CONCURRENT MEDICAL MANAGEMENT OF PATIENT'S UNDERLYING MEDICAL CONDITIONS?: YES PLAN WOUND ORDERS: WOUND #1 LEFT, MEDIAL LEG HAND HYGIENE HAND HYGIENE - WASH HANDS BEFORE AND AFTER WOUND CARE. CALL THE WOUND CENTER AT [phone] IF YOU HAVE SIGNS OR SYMPTOMS OF INFECTION, FEVER CHILLS OR SHAKES, INCREASED DRAINAGE, INCREASED ODOR OR UNUSUAL REDNESS. AFTER WOUND CENTER HOURS PLEASE NOTIFY YOUR PCP OR GO TO THE EMERGENCY ROOM. CLEANSER CLEANSE WOUND WITH NORMAL SALINE CLEANSE WOUND AND CARLOS WOUND WITH A NON-CYTOTOXIC WOUND CLEANSER. - VASHE. MAY SHOWER, LEAVE WOUND DRESSING INTACT. COVER WOUND DRESSING WITH A WATERPROOF BARRIER. KEEP DRESSING DRY. NO BATHS PLEASE. PROCEDURE / ANESTHETIC 5% TOPICAL LIDOCAINE TO WOUND BED PRIOR TO PROCEDURE, IN CLINIC ONLY. DRESSING ORDERS APPLY DRESSING(S) AND SECURE WITH: - EPIFIX 18MM #4, ADAPTIC, AQUACEL, STERISTRIP, SILICONE TAPE DRESSING CHANGE FREQUENCY LEAVE DRESSING INTACT UNTIL YOUR NEXT WOUND CENTER APPOINTMENT. KEEP DRY. COMPRESSION/EDEMA CONTROL ELEVATE LEG(S) ABOVE THE LEVEL OF THE HEART MUCH POSSIBLE. AVOID STANDING IN ONE POSITION FOR MORE THAN 10 MINUTES. AVOID SITTING WITH LEGS DOWN. DO NOT CROSS LEGS WHEN SITTING. APPLY MULTI LAYER WRAP TO AFFECTED LEG(S) AT 20-30MMHG. - [place] 2 LAYER LITE COMPRESSION WRAP 25- 30MMHG. ADDITIONAL ORDERS: DIETARY TAKE VITAMIN C 1000MG BY MOUTH DAILY. JESSE CARBALLO [id number] 1940 TAKE ZINC 25MG BY MOUTH DAILY. INCREASE THE PROTEIN IN YOUR DIET. HOME HEALTH HOME HEALTH CARE: IF YOU HAVE ANY QUESTIONS OR CONCERNS PLEASE CONTACT THE WOUND CENTER. - [facility]- NO NEED FOR HOME HEALTH VISITS AT THIS TIME, PATIENT HAS SKIN SUBSTITUTE AND COMPRESSION WRAP IN PLACE. PATIENT WILL REQUIRE HOME HEALTH WHEN WE ARE NO LONGER USING SKIN SUBSTITUTES. FOLLOW-UP APPOINTMENTS RETURN APPOINTMENT 1 WEEK SCRIBING ATTESTATION I ATTEST, THE NURSE, THAT I SCRIBED THESE ORDERS FOR THE WOUND CARE PROVIDER. PROVIDER REVIEW AND ATTESTATION: REVIEWED AND EVALUATED LABS. REVIEWED HOSPITAL RECORDS. DISCUSSED THE PLAN OF CARE @ BEDSIDE WITH - THE PATIENT I AGREE AND ATTEST TO THE ABOVE INFORMATION PROVIDED FROM OTHER LICENSED PROFESSIONALS. PLAN OF CARE: 01. ENSURE/ESTABLISH OPTIMAL BLOOD FLOW : - COMPLETE LOWER EXTREMITY ASSESSMENT STATUS: CONTINUED DATE: 08/04/2024 - PERFORM NON-INVASIVE VASCULAR TESTING (I.E. SUGEY) AND DOCUMENT FINDINGS. CONSIDER REPEATING WHEN WOUND HEALING <40% AFTER 30 DAYS OF WOUND CARE. STATUS: COMPLETED DATE: 07/01/2024 02. ASSESS FOR/TREAT INFECTION : - EVALUATE FOR SIGNS AND SYMPTOMS OF INFECTION AND DOCUMENT FINDINGS. STATUS: CONTINUED DATE: 08/04/2024 03. DEBRIDE WEEKLY OR MORE OFTEN PRN : - EVALUATE PATIENT IN CENTER WEEKLY TO ASSESS WOUND BED AND MARGINS FOR NEED FOR DEBRIDEMENT. STATUS: CONTINUED DATE: 08/04/2024 04. OPTIMIZE GLUCOSE CONTROL AND NUTRITION : - ORDER/REVIEW PERTINENT LABS TO EVALUATE RENAL FUNCTION, GLUCOSE CONTROL, AND NUTRITIONAL STATUS. STATUS: CONTINUED DATE: 08/04/2024 05. OFFLOADING PLAN : - REVIEWED, NOT APPLICABLE 06. OPTIMIZE HOST FACTORS: - ASSESS AND REVIEW PATIENT HISTORY FOR WOUND ETIOLOGY, CO-MORBID CONDITIONS, MEDICATION REGIME, AND SMOKING HISTORY. STATUS: CONTINUED DATE: 08/04/2024 07. DRESSING SELECTION : - EVALUATE FOR DRESSING-RELATED FACTORS, SUCH AVAILABILITY, WEAR TIME, ADAPTABILITY AND USE TO BETTER OPTIMIZE WOUND HEALING AND PATIENT COMPLIANCE. STATUS: CONTINUED DATE: 08/04/2024 08. ADVANCED MODALITIES : - SET TREATMENT GOALS ACCORDING TO PATIENT AND/OR CAREGIVER?S ABILITY/ COMPLIANCE. STATUS: CONTINUED DATE: 08/04/2024 09. FALL PREVENTION : - COMPLETE FALL ASSESSMENT. STATUS: CONTINUED DATE: 08/04/2024 10. PAIN MANAGEMENT : - COMPLETE PAIN ASSESSMENT STATUS: CONTINUED DATE: 08/04/2024 11. MEASURABLE GOALS FOR WOUND HEALING AND/OR HYPERBARIC OXYGEN THERAPY : - DECREASE WOUND DIMENSIONS JESSE CARBALLO [id number] 1940 STATUS: CONTINUED DATE: 08/04/2024 - IMPLEMENT PROTOCOLS TO PROMOTE HEALING AND IMPEDE FURTHER INJURY STATUS: CONTINUED DATE: 08/04/2024 12. DURATION/FREQUENCY OF WOUND CARE VISITS : - 1X WEEKLY FOR 30 DAYS STATUS: CONTINUED DATE: 08/04/2024 ELECTRONIC SIGNATURE(S) SIGNED BY: DATE: RHODA WEST MD 08/19/2024 16:19:23 (PT) ENTERED BY: RHODA WEST MD ON 08/18/2024 12:26:00 (PT) JESSE CARBALLO [id number] 1940
== END ==
LOC: WC 10:31
PROVIDERS: PCP Student in an Organized Health Care Education/Training Program; Referring Provider Student in an Organized Health Care Education/Training Program; Visit Provider Surgery
DX: I87.2 Venous insufficiency (chronic) (peripheral) (principal); L97.822 Non-pressure chronic ulcer of other part of left lower leg with fat layer exposed; L98.8 Other specified disorders of the skin and subcutaneous tissue; R60.0 Localized edema; I10 Essential (primary) hypertension; Z79.01 Long term (current) use of anticoagulants
CPT/HCPCS: 15271; Q4186

== ENCOUNTER → 2024-08-25 11:21 | Outpatient (CLI) | payer MEDICARE, BC, SELFPAY ==
[2023-12-24 14:06] VITALS: BMI 21.1
== END ==
PROVIDERS: PCP Student in an Organized Health Care Education/Training Program; Referring Provider Student in an Organized Health Care Education/Training Program; Visit Provider Surgery
DX: I87.2 Venous insufficiency (chronic) (peripheral) (principal); L97.822 Non-pressure chronic ulcer of other part of left lower leg with fat layer exposed; L98.8 Other specified disorders of the skin and subcutaneous tissue; R60.0 Localized edema; I10 Essential (primary) hypertension
CPT/HCPCS: 15271; Q4186

== ENCOUNTER → 2024-09-29 14:18 | Outpatient (CLI) | payer MEDICARE, BC, SELFPAY ==
[2023-12-24 14:06] VITALS: BMI 21.1
== END ==
PROVIDERS: PCP Student in an Organized Health Care Education/Training Program; Referring Provider Student in an Organized Health Care Education/Training Program; Visit Provider Surgery
DX: I87.2 Venous insufficiency (chronic) (peripheral) (principal); L97.822 Non-pressure chronic ulcer of other part of left lower leg with fat layer exposed; R60.0 Localized edema; M79.605 Pain in left leg
CPT/HCPCS: 11042; 99213

== ENCOUNTER → 2024-10-15 10:38 | Outpatient (CLI) | payer MEDICARE, BC, SELFPAY ==
[2023-12-24 14:06] VITALS: BMI 21.1
== END ==
LOC: WC 10:40
PROVIDERS: PCP Student in an Organized Health Care Education/Training Program; Referring Provider Student in an Organized Health Care Education/Training Program; Visit Provider Surgery
DX: Z87.2 Personal history of diseases of the skin and subcutaneous tissue (principal); I89.0 Lymphedema, not elsewhere classified
CPT/HCPCS: 99213

== ENCOUNTER → 2025-02-02 15:15 | Outpatient (CLI) | payer MEDICARE, BC, SELFPAY ==
[2023-12-24 14:06] VITALS: BMI 21.1
== END ==
LOC: WC 15:20
PROVIDERS: Family Provider Student in an Organized Health Care Education/Training Program; PCP Student in an Organized Health Care Education/Training Program; Referring Provider Student in an Organized Health Care Education/Training Program; Visit Provider Surgery
DX: L97.822 Non-pressure chronic ulcer of other part of left lower leg with fat layer exposed (principal); I87.2 Venous insufficiency (chronic) (peripheral); L81.8 Other specified disorders of pigmentation; L08.89 Other specified local infections of the skin and subcutaneous tissue; B95.1 Streptococcus, group B, as the cause of diseases classified elsewhere; B95.7 Other staphylococcus as the cause of diseases classified elsewhere; I48.91 Unspecified atrial fibrillation; Z79.01 Long term (current) use of anticoagulants; I10 Essential (primary) hypertension
CPT/HCPCS: 11042; 11045; 99213

== ENCOUNTER → 2025-02-09 11:55 | Outpatient (CLI) | payer MEDICARE, BC, SELFPAY ==
[2023-12-24 14:06] VITALS: BMI 21.1
== END ==
PROVIDERS: Family Provider Student in an Organized Health Care Education/Training Program; PCP Student in an Organized Health Care Education/Training Program; Referring Provider Student in an Organized Health Care Education/Training Program; Visit Provider Surgery
DX: I87.2 Venous insufficiency (chronic) (peripheral) (principal); L97.822 Non-pressure chronic ulcer of other part of left lower leg with fat layer exposed; L81.8 Other specified disorders of pigmentation; I10 Essential (primary) hypertension; I48.91 Unspecified atrial fibrillation; Z79.01 Long term (current) use of anticoagulants; Z99.89 Dependence on other enabling machines and devices
CPT/HCPCS: 11042; 11045

== ENCOUNTER → 2025-02-16 10:46 | Outpatient (CLI) | payer MEDICARE, BC, SELFPAY ==
[2023-12-24 14:06] VITALS: BMI 21.1
== END ==
LOC: WC 10:54
PROVIDERS: Family Provider Student in an Organized Health Care Education/Training Program; PCP Student in an Organized Health Care Education/Training Program; Referring Provider Student in an Organized Health Care Education/Training Program; Visit Provider Surgery
DX: I87.2 Venous insufficiency (chronic) (peripheral) (principal); L97.822 Non-pressure chronic ulcer of other part of left lower leg with fat layer exposed; L98.8 Other specified disorders of the skin and subcutaneous tissue; L81.8 Other specified disorders of pigmentation; I48.91 Unspecified atrial fibrillation; Z79.01 Long term (current) use of anticoagulants; I10 Essential (primary) hypertension; Z99.89 Dependence on other enabling machines and devices
CPT/HCPCS: 11042; 11045; 99213

== ENCOUNTER → 2025-02-23 10:11 | Outpatient (CLI) | payer MEDICARE, BC, SELFPAY ==
[2023-12-24 14:06] VITALS: BMI 21.1
== END ==
LOC: WC 10:14
PROVIDERS: Family Provider Student in an Organized Health Care Education/Training Program; PCP Student in an Organized Health Care Education/Training Program; Referring Provider Student in an Organized Health Care Education/Training Program; Visit Provider Surgery
DX: I87.2 Venous insufficiency (chronic) (peripheral) (principal); L97.822 Non-pressure chronic ulcer of other part of left lower leg with fat layer exposed; L08.9 Local infection of the skin and subcutaneous tissue, unspecified; I89.0 Lymphedema, not elsewhere classified; L98.8 Other specified disorders of the skin and subcutaneous tissue; R60.0 Localized edema; Z79.01 Long term (current) use of anticoagulants
CPT/HCPCS: 11042; 11045; 29581; 99212

== ENCOUNTER → 2025-03-02 10:41 | Outpatient (CLI) | payer MEDICARE, BC, SELFPAY ==
[2023-12-24 14:06] VITALS: BMI 21.1
== END ==
LOC: WC 10:52
PROVIDERS: Family Provider Student in an Organized Health Care Education/Training Program; PCP Student in an Organized Health Care Education/Training Program; Referring Provider Student in an Organized Health Care Education/Training Program; Visit Provider Surgery
DX: I87.2 Venous insufficiency (chronic) (peripheral) (principal); L97.822 Non-pressure chronic ulcer of other part of left lower leg with fat layer exposed; L98.8 Other specified disorders of the skin and subcutaneous tissue; L97.321 Non-pressure chronic ulcer of left ankle limited to breakdown of skin; R21 Rash and other nonspecific skin eruption; R60.0 Localized edema; L53.8 Other specified erythematous conditions
CPT/HCPCS: 11042; 97602; 99213

== ENCOUNTER → 2025-03-09 13:27 | Outpatient (CLI) | payer MEDICARE, BC, SELFPAY ==
[2023-12-24 14:06] VITALS: BMI 21.1
== END ==
LOC: WC 13:30
PROVIDERS: Family Provider Student in an Organized Health Care Education/Training Program; PCP Student in an Organized Health Care Education/Training Program; Referring Provider Student in an Organized Health Care Education/Training Program; Visit Provider Surgery
DX: I87.2 Venous insufficiency (chronic) (peripheral) (principal); L97.922 Non-pressure chronic ulcer of unspecified part of left lower leg with fat layer exposed; R21 Rash and other nonspecific skin eruption; L81.8 Other specified disorders of pigmentation; R23.4 Changes in skin texture; I48.91 Unspecified atrial fibrillation; Z79.01 Long term (current) use of anticoagulants; I10 Essential (primary) hypertension; Z99.89 Dependence on other enabling machines and devices
CPT/HCPCS: 97602; 99213

== ENCOUNTER → 2025-03-16 15:58 | Outpatient (CLI) | payer MEDICARE, BC, SELFPAY ==
[2023-12-24 14:06] VITALS: BMI 21.1
== END ==
LOC: WC 15:59
PROVIDERS: Family Provider Student in an Organized Health Care Education/Training Program; PCP Student in an Organized Health Care Education/Training Program; Referring Provider Student in an Organized Health Care Education/Training Program; Visit Provider Surgery
DX: I87.2 Venous insufficiency (chronic) (peripheral) (principal); L97.922 Non-pressure chronic ulcer of unspecified part of left lower leg with fat layer exposed; L81.8 Other specified disorders of pigmentation; R23.4 Changes in skin texture; I89.0 Lymphedema, not elsewhere classified; I48.91 Unspecified atrial fibrillation; I10 Essential (primary) hypertension; Z79.01 Long term (current) use of anticoagulants; Z99.89 Dependence on other enabling machines and devices
CPT/HCPCS: 11042; 11045

== ENCOUNTER → 2025-03-23 10:45 | Outpatient (CLI) | payer MEDICARE, BC, SELFPAY ==
[2023-12-24 14:06] VITALS: BMI 21.1
== END ==
LOC: WC 10:46
PROVIDERS: Family Provider Student in an Organized Health Care Education/Training Program; PCP Student in an Organized Health Care Education/Training Program; Referring Provider Student in an Organized Health Care Education/Training Program; Visit Provider Surgery
DX: L97.822 Non-pressure chronic ulcer of other part of left lower leg with fat layer exposed (principal); I87.2 Venous insufficiency (chronic) (peripheral); L08.9 Local infection of the skin and subcutaneous tissue, unspecified; R60.0 Localized edema; Z79.01 Long term (current) use of anticoagulants
CPT/HCPCS: 97602; 99213

== ENCOUNTER → 2025-03-30 11:33 | Outpatient (CLI) | payer MEDICARE, BC, SELFPAY ==
[2023-12-24 14:06] VITALS: BMI 21.1
== END ==
LOC: WC 11:35
PROVIDERS: Family Provider Student in an Organized Health Care Education/Training Program; PCP Student in an Organized Health Care Education/Training Program; Referring Provider Student in an Organized Health Care Education/Training Program; Visit Provider Surgery
DX: I87.2 Venous insufficiency (chronic) (peripheral) (principal); L97.822 Non-pressure chronic ulcer of other part of left lower leg with fat layer exposed; R60.0 Localized edema; L98.8 Other specified disorders of the skin and subcutaneous tissue
CPT/HCPCS: 97602; 99213

== ENCOUNTER → 2025-04-06 11:59 | Outpatient (CLI) | payer MEDICARE, BC, SELFPAY ==
[2023-12-24 14:06] VITALS: BMI 21.1
== END ==
LOC: WC 12:01
PROVIDERS: Family Provider Student in an Organized Health Care Education/Training Program; PCP Student in an Organized Health Care Education/Training Program; Referring Provider Student in an Organized Health Care Education/Training Program; Visit Provider Surgery
DX: L97.822 Non-pressure chronic ulcer of other part of left lower leg with fat layer exposed (principal); I87.2 Venous insufficiency (chronic) (peripheral); R60.0 Localized edema; Z79.01 Long term (current) use of anticoagulants
CPT/HCPCS: 11042; 11045

== ENCOUNTER → 2025-04-13 13:34 | Outpatient (CLI) | payer MEDICARE, BC, SELFPAY ==
[2023-12-24 14:06] VITALS: BMI 21.1
== END ==
LOC: WC 13:36
PROVIDERS: Family Provider Student in an Organized Health Care Education/Training Program; PCP Student in an Organized Health Care Education/Training Program; Referring Provider Student in an Organized Health Care Education/Training Program; Visit Provider Surgery
DX: I87.2 Venous insufficiency (chronic) (peripheral) (principal); L97.822 Non-pressure chronic ulcer of other part of left lower leg with fat layer exposed; R21 Rash and other nonspecific skin eruption
CPT/HCPCS: 11042; 11045

== ENCOUNTER → 2025-04-20 11:11 | Outpatient (CLI) | payer MEDICARE, BC, SELFPAY ==
[2023-12-24 14:06] VITALS: BMI 21.1
== END ==
LOC: WC 11:19
PROVIDERS: Family Provider Student in an Organized Health Care Education/Training Program; PCP Student in an Organized Health Care Education/Training Program; Referring Provider Student in an Organized Health Care Education/Training Program; Visit Provider Surgery
DX: I87.2 Venous insufficiency (chronic) (peripheral) (principal); L97.822 Non-pressure chronic ulcer of other part of left lower leg with fat layer exposed; L98.8 Other specified disorders of the skin and subcutaneous tissue; R23.4 Changes in skin texture; R60.0 Localized edema; Z79.01 Long term (current) use of anticoagulants
CPT/HCPCS: 11042

== ENCOUNTER → 2025-04-27 10:45 | Outpatient (CLI) | payer MEDICARE, BC, SELFPAY ==
[2023-12-24 14:06] VITALS: BMI 21.1
== END ==
LOC: WC 10:46
PROVIDERS: Family Provider Student in an Organized Health Care Education/Training Program; PCP Student in an Organized Health Care Education/Training Program; Referring Provider Student in an Organized Health Care Education/Training Program; Visit Provider Surgery
DX: I87.2 Venous insufficiency (chronic) (peripheral) (principal); L97.822 Non-pressure chronic ulcer of other part of left lower leg with fat layer exposed; R21 Rash and other nonspecific skin eruption; L98.8 Other specified disorders of the skin and subcutaneous tissue; R60.0 Localized edema; R23.4 Changes in skin texture
CPT/HCPCS: 97602; 99213

== ENCOUNTER → 2025-05-11 10:32 | Outpatient (CLI) | payer MEDICARE, BC, SELFPAY ==
[2023-12-24 14:06] VITALS: BMI 21.1
== END ==
LOC: WC 10:35
PROVIDERS: Family Provider Student in an Organized Health Care Education/Training Program; PCP Student in an Organized Health Care Education/Training Program; Referring Provider Student in an Organized Health Care Education/Training Program; Visit Provider Surgery
DX: I87.2 Venous insufficiency (chronic) (peripheral) (principal); L97.822 Non-pressure chronic ulcer of other part of left lower leg with fat layer exposed; L98.8 Other specified disorders of the skin and subcutaneous tissue; R23.4 Changes in skin texture; Z79.01 Long term (current) use of anticoagulants
CPT/HCPCS: 99212; 99213